=== PATIENT | female | born 1990 | race Asian ===

== ENCOUNTER 2017-02-09 08:28 | Emergency (ER) | payer OTHER ==
[2017-02-09] MEDS ORDERED: SODIUM CHLORIDE 1,000 ML IV STA (08:45)
--- NOTE | 2017-02-09 08:52 | PDOC ---
History of Present Illness - General Chief Complaint: Syncope/Near Syncope Stated Complaint: SYNCOPE Time Seen by Provider: 02/09/17 08:35 History Source: Patient Exam Limitations: No Limitations - History of Present Illness Initial Comments: CHIEF COMPLAINT: 26 y/o afebrile female, , approximately 22 weeks with due date of 06/13/17 and LMP of 09/04/16 BIB EMS after LOC with head trauma. HISTORY OF PRESENT ILLNESS: The patient states she was at [employer] this morning when she felt her vision begin to go black. The next thing she remembers is waking up on the floor. She states she did not eat or drink anything before confucianist. She is denying all complaints currently and states she feels fine. She states other people in the conf[employer]ianist told her she hit her head. She denies MCCARTNEY , bumps on head, changes in hearing, neck pain, f/c, n/v/d, Cp, SOB, dizziness, palpitations, abd pain, back pain, hematuria, dysuria, abnormal vaginal discharge, vaginal bleeding. She is taking vitamins and is a non smokers. She is seeing a doctor in a clinic and will deliver at this hospital with one of our OB/GYNs. She does inform me that 2 days ago she experiences palpitations and MCCARTNEY while sitting down doing nothing. Vital signs on arrival are REVIEW OF SYSTEMS: GENERAL/CONSTITUTIONAL: No fever/chills. No weakness. No weight change. HEAD, EYES, EARS, NOSE AND THROAT: +blackened vision. No ear pain or discharge. No sore throat. CARDIOVASCULAR: No chest pain or shortness of breath. RESPIRATORY: No cough, wheezing, or hemoptysis. GASTROINTESTINAL: No abd pain, nausea, vomiting, diarrhea. GENITOURINARY: No dysuria, frequency, or change in urination. MUSCULOSKELETAL: No joint or muscle swelling or pain. No neck or back pain. SKIN: No rash or easy bruising. NEUROLOGIC: +Loss of consciousness. No headache, vertigo, or loss of sensation. PHYSICAL EXAM: GENERAL: The patient is awake, alert, and fully oriented, in no acute distress. She is well appearing and pleasant. HEAD: Normal with no signs of trauma. No hematomas. No battles signs. NECK: No midline cervical spine TTP or step offs. Full flexion and extension of cervical spine. ENT: Pupils equal, round and reactive to light, extraocular movements intact, sclera anicteric, conjunctiva clear. No raccoon eyes. No hemotympanum b/l. LUNGS: Clear to auscultation bilaterally. Normal excursion. No respiratory distress or use of accessory muscles. CV: RRR, S1/S2, no MRG. Cap refill < 2 sec. ABDOMEN: Soft, non-distended, non-tender even to deep palpation, no hepatomegaly or splenomegaly, no masses. EXTREMITIES: Normal range of motion, no edema. NEUROLOGICAL: Normal speech, normal gait. CN II-XII grossly intact. PSYCH: Normal mood, normal affect. SKIN: Warm, dry, normal turgor, no rashes or lesions noted. Past History - Past Medical History Allergies/Adverse Reactions: Allergies Allergy/AdvReac Type Severity Reaction Status Date / Time No Known Allergies Allergy Verified 02/09/17 09:29 Home Medications: Ambulatory Orders NK [No Known Home Medication] 02/09/17 Heart Score/ECG Review - ECG Intrepretation Comment:: Twelve-lead EKG was performed and reviewed by Dr. Lema. There is normal sinus rhythm with a normal rate. The axis is normal. The intervals are normal. There are no ST or T wave abnormalities. Impression: Normal twelve-lead EKG ED Treatment Course - LABORATORY CBC & Chemistry Diagram: 02/09/17 08:30 02/09/17 08:30 Medical Decision Making - Medical Decision Making A/P: 26 y/o afebrile female, approximately 22 weeks with witnessed syncope with head trauma. Plan is as follows: 1. labs 2. UA/culture 3. EKG 4. Head CT 5. ultrasound 6. IV fluids The patient and her are refusing the Head CT Ultrasound IMPRESSION: Single viable intrauterine gestation at approximately 21 weeks, 3 days. Labs unremarkable EKG normal Pt continues to state that she feels well. Spoke with Dr. Flanagan, OB conductor and engineer and currently upstairs in L&D. We discussed the labs and ultrasound results. She states the patient does not need to be sent upstairs for monitoring. She states the patient can be sent home with her own OB follow up. The patient does see an OB at a clinic and states she will call tomorrow. Gave the patient and her all of the results. Will discharge to home with instructions to rest, drink plenty of fluids and follow up with her DYSLEXIA TEACHER tomorrow. Instructed her to return to the ER immediately with any worsening or concerning symptoms. Instructed her to keep an eye on the patient for the next 24 hours and return her to the ER if she develops any abnormal symptoms including seizures, slurred speech, somnolence, intractable vomiting. The patient verbalizes understanding of all instructions, has no further questions and is awaiting discharge. *DC/Admit/Observation/Transfer Diagnosis at time of Disposition: Syncope and collapse - Discharge Dispostion Disposition: HOME Condition at time of disposition: Good - Referrals Referrals: Tommy Jones MD [Primary Care Provider] - - Patient Instructions Printed Discharge Instructions: DI for Syncope in Adults (Fainting) Additional Instructions: Discharge instructions: -All of your labs were normal -Your EKG was normal -Your ultrasound was normal -Please go home, rest and drink plenty of fluids -Please call your DYSLEXIA TEACHER tomorrow for follow up -Return to the ER immediately with any worsening or concerning symptoms
[2017-02-09 09:06] LABS: BASOPHIL 0.7 % (0-2.0); EOSINOPHIL 3.9 % (0-4.5); MCH 30.1 pg (25.7-33.7); MCHC 33.9 g/dl (32.0-36.0); MEAN CELL VOLUME 88.7 fl (80-96); MEAN PLT VOLUME 9.7 fl (7.5-11.1); NEUTROPHILS 70.9 % (42.8-82.8); PLATELET COUNT 159 K/MM3 (134-434); RDW 13.4 % (11.6-15.6)
[2017-02-09 09:11] VITALS: TEMP 98.2; BMI 26.5
[2017-02-09 09:34] LABS: ALBUMIN 3.3 g/dl (3.4-5.0); ANION GAP 9 (8-16); BILIRUBIN,TOTAL 0.5 mg/dL (0.2-1.0); CALCIUM 8.4 mg/dL (8.5-10.1); CO2 23 mmol/L (21-32); CREATININE 0.4 mg/dL (0.55-1.02); GLUCOSE,RANDOM 86 mg/dL (74-106); SGOT/AST 14 U/L (15-37); SGPT/ALT 21 U/L (12-78); TOT PROT 6.7 g/dl (6.4-8.2)
[2017-02-09 09:36] LABS: ALK PHOS 42 U/L (45-117); TROPONIN I < 0.02 ng/ml (0.00-0.05)
[2017-02-09 10:01] LABS: URINE APPEARANCE CLEAR; URINE BILIRUBIN NEGATIVE (NEGATIVE); URINE BLOOD NEGATIVE (NEGATIVE); URINE COLOR LTYELLOW; URINE GLUCOSE (UA) NEGATIVE (NEGATIVE); URINE KETONE NEGATIVE (NEGATIVE); URINE LEUK ESTERASE NEGATIVE (NEGATIVE); URINE NITRITE NEGATIVE (NEGATIVE); URINE PROTEIN NEGATIVE (NEGATIVE); URINE UROBILINOGEN NEGATIVE E.U./dl (0.2-1.0)
[2017-02-09 11:47] VITALS: BP 116/63; PULSE 78
--- NOTE | 2017-02-09 12:20 | EKG ---
Test Reason : Blood Pressure : / mmHG Vent. Rate : 076 BPM Atrial Rate : 076 BPM P-R Int : 156 ms QRS Dur : 080 ms QT Int : 402 ms P-R-T Axes : 012 013 033 degrees QTc Int : 452 ms NORMAL SINUS RHYTHM CANNOT RULE OUT ANTERIOR INFARCT , AGE UNDETERMINED ABNORMAL ECG NO PREVIOUS ECGS AVAILABLE Confirmed by MARKELL ADDISON MD ([id number]) on 02/09/2017 12:20:04 PM Referred By: Confirmed By:MARKELL ADDISON MD
== END 2017-02-09 11:53 | disposition home or self-care (01) ==
LOC: JER 08:28
PROC: 3E0337Z Introduction of Electrolytic and Water Balance Substance into Peripheral Vein, Percutaneous Approach (ICD-10-PCS; principal; 2017-02-09)
DX: O99.89 Other specified diseases and conditions complicating pregnancy, childbirth and the puerperium (principal); R55 Syncope and collapse; Z3A.21 21 weeks gestation of pregnancy
CPT/HCPCS: 76815-TC; 80053; 81003; 82550; 84484; 87086; 93005; 93010; 96360; 99285-25

== ENCOUNTER 2017-06-13 10:15 | Inpatient (IN) | payer OTHER ==
[2017-06-13] MEDS ORDERED: AMPICILLIN - 2 GM in SODIUM CHLORIDE 100 ML IVPB ONE (11:00)
[2017-06-13 11:45] VITALS: BMI 29.5
[2017-06-13 12:19] LABS: BASOPHIL 0.7 % (0-2.0); EOSINOPHIL 0.7 % (0-4.5); MCH 30.2 pg (25.7-33.7); MCHC 33.6 g/dl (32.0-36.0); MEAN CELL VOLUME 89.9 fl (80-96); MEAN PLT VOLUME 10.5 fl (7.5-11.1); NEUTROPHILS 76.6 % (42.8-82.8); PLATELET COUNT 179 K/MM3 (134-434); RDW 13.2 % (11.6-15.6); WHITE BLOOD COUNT 11.7 K/mm3 (4.0-10.0)
[2017-06-13 12:32] LABS: INR 0.88 (0.82-1.09); PROTHROMBIN TIME (PATIENT) 9.7 SEC (9.98-11.88)
[2017-06-13 12:35] LABS: ACTIVATED PTT 24.3 SECONDS (26.9-34.4)
[2017-06-13 12:37] LABS: ANION GAP 11 (8-16); CALCIUM 8.8 mg/dL (8.5-10.1); CO2 23 mmol/L (21-32); CREATININE 0.4 mg/dL (0.55-1.02); GLUCOSE,RANDOM 81 mg/dL (74-106)
[2017-06-13 12:53] LABS: HIV 1 & 2 AB NEGATIVE; HIV 1 AGp24 NEGATIVE
[2017-06-13] MEDS ORDERED: DEXTROSE 5%-LACTATED RINGERS 1,000 ML IV SCH ×2 (14:45→15:45)
[2017-06-13] MEDS: AMPICILLIN - 100 ML IVPB SCH ×2 (15:20→18:53)
[2017-06-13] MEDS ORDERED: PROMETHAZINE HCL 25 MG/1 ML VIAL IVPUSH ONE (15:42)
[2017-06-13] MEDS ORDERED: BUTORPHANOL TARTRATE 1 MG/ML VIAL IVPB ONE (15:42)
--- NOTE | 2017-06-13 15:51 | HP ---
Past Medical History - Admission Chief Complaint: Labor pain History of Present Illness: 27 yo , @ 40 weeks gestation, EDC 06/13 presents c/o labor pain. She denies vaginal bleeding nor rupture of membrane. History Source: Patient Limitations to Obtaining History: No Limitations - Past Medical History ...: 1 ...Para: 0 ...Term: 0 ...: 0 ...Spon : 0 ...Induced : 0 ...Multiple Gestation: 0 ...LMP: 08/28/16 ... Weeks Gestation by Dates: 41.2 ...EDC by Dates: 06/04/17 ...EDC by Sono: 06/13/17 - Past Surgical History Past Surgical History: Yes: None Hx Myomectomy: No Hx Transabdominal Cerclage: No - Smoking History Smoking history: Never smoked Have you smoked in the past 12 months: No - Alcohol/Substance Use Hx Alcohol Use: No History of Substance Use: reports: None - Social History Usual Living Arrangement: Yes: With Spouse History of Recent Travel: No Home Medications - Allergies Allergies/Adverse Reactions: Allergies Allergy/AdvReac Type Severity Reaction Status Date / Time No Known Allergies Allergy Verified 06/13/17 11:03 - Home Medications Home Medications: Ambulatory Orders Vit No.130/Iron/FA [ Vitamins] 1 each PO DAILY 06/13/17 Family Disease History - Family Disease History Family History: Unremarkable Review of Systems - Review of Systems Constitutional: reports: No Symptoms Eyes: reports: No Symptoms HENT: reports: No Symptoms Neck: reports: No Symptoms Cardiovascular: reports: No Symptoms Respiratory: reports: No Symptoms Gastrointestinal: reports: No Symptoms Genitourinary: reports: Pain Breasts: reports: No Symptoms Reported Musculoskeletal: reports: No Symptoms Integumentary: reports: No Symptoms Neurological: reports: No Symptoms Endocrine: reports: No Symptoms Hematology/Lymphatic: reports: No Symptoms Psychiatric: reports: No Symptoms Pain Intensity: 5 Physical Exam - Maternity Vital Signs: Vital Signs Temperature 97.9 F 06/13/17 15:00 Pulse Rate 80 06/13/17 15:00 Respiratory Rate 20 06/13/17 15:00 Blood Pressure 130/68 06/13/17 15:00 O2 Sat by Pulse Oximetry (%) Constitutional: Yes: Well Nourished Eyes: Yes: Conjunctiva Clear HENT: Yes: Atraumatic Neck: Yes: Supple Cardiovascular: Yes: Regular Rate and Rhythm Lungs: Clear to auscultation Breast(s): Yes: WNL - Abdominal Exam/OB Number of Fetuses: Single Presentation: Vertex - Vaginal Exam/OB Vaginal Bleediing: No Speculum Exam: No Dilatation (cm): 3 Effacement (%): 80 Station: -3 - Physical Exam Musculoskeletal: Yes: WNL Extremities: Yes: WNL Integumentary: Yes: WNL ...Motor Strength: WNL Psychiatric: Yes: Alert, Oriented - Labs Lab Results: CBC, BMP 06/13/17 11:45 06/13/17 11:45 Problem List - Problems (1) Pain during labor Code(s): O99.89 - OTH DISEASES AND CONDITIONS COMPL PREG/CHLDBRTH R52 - PAIN, UNSPECIFIED Assessment/Plan Active labor Admit to L&D Analgesia as needed Anticipate normal vaginal delivery
--- NOTE | 2017-06-13 15:56 | PN ---
Progress Note (short form) - Note Progress Note: Patient seen and evaluated, she c/o moderate discomfort. She declines analgesia now. FHR : reassuring [place] : + regular contractions VE : 6/-2 AROM clear A/P Active labor Analgesia as needed Anticipate Problem List - Problems (1) Pain during labor Code(s): O99.89 - OTH DISEASES AND CONDITIONS COMPL PREG/CHLDBRTH R52 - PAIN, UNSPECIFIED
[2017-06-13] MEDS ORDERED: IBUPROFEN 600 MG TABLET (FP) PO PRN (21:07)
[2017-06-13] MEDS ORDERED: BENZOCAINE 20% 57 GM BOTTLE TP PRN (21:07)
[2017-06-13] MEDS ORDERED: WITCH HAZEL 50% (TUCKS) 40 PAD/JAR PAD TP PRN (21:07)
[2017-06-13] MEDS ORDERED: METHYLERGONOVINE MALEATE 0.2 MG/1 ML AMP IM PRN (21:07)
[2017-06-13] MEDS ORDERED: ACETAMINOPHEN 325 MG TABLET (FP) PO PRN (21:07)
[2017-06-13] MEDS ORDERED: BISACODYL 10 MG SUPP.RECT RC PRN (21:07)
[2017-06-13] MEDS ORDERED: BENZOCAINE 28 GM HEMORRHOIDAL OINTMENT TP PRN (21:07)
--- NOTE | 2017-06-13 21:10 | PN ---
Delivery - Delivery Vaginal Delivery: Spontaneous Type of Anesthesia: Local Episiotomy/Laceration: Midline EBL (cc): 300 Delivery, Single - Feeding Plan Initial Plan: Exclusive throughout hospitalization Remarks - Remarks Remarks: Normal spontaneous vaginal delivery of a live infant boy over midline episiotomy. Nose / Oropharynx suctioned @ perineum. Cord clamped and cut. Placenta expelled spontaneously intact. Midline episiotomy repaired with 2.0 Chromic.
[2017-06-13] MEDS ORDERED: D5W-LR W/ 20 UNITS OXYTOCIN 1,000 ML IV SCH (21:15)
[2017-06-14] MEDS: AMPICILLIN - 100 ML IVPB SCH ×2 (00:03→04:32)
[2017-06-14 07:41] LABS: BASOPHIL 0.5 % (0-2.0); EOSINOPHIL 0.7 % (0-4.5); MCH 30.3 pg (25.7-33.7); MCHC 33.4 g/dl (32.0-36.0); MEAN CELL VOLUME 90.7 fl (80-96); MEAN PLT VOLUME 10.6 fl (7.5-11.1); NEUTROPHILS 78.3 % (42.8-82.8); PLATELET COUNT 146 K/MM3 (134-434); RDW 13.3 % (11.6-15.6); WHITE BLOOD COUNT 16.9 K/mm3 (4.0-10.0)
[2017-06-14] MEDS: FERROUS SO4 325 MG TABLET (FP) PO SCH ×3 (08:19→17:07)
[2017-06-14] MEDS: PRENATAL VITAMINS W/ FOLIC ACID TABLET (FP) PO SCH (10:19)
--- NOTE | 2017-06-14 10:30 | PN ---
Post Progress Note - Subjective Subjective: 27 yo Para 1 status post vaginal delivery, seen and evaluated. Doing well Post Day: 1 Type of Delivery: Vital Signs: Vital Signs Temperature 98 F 06/14/17 10:00 Pulse Rate 86 06/14/17 10:00 Respiratory Rate 20 06/14/17 10:00 Blood Pressure 124/67 06/14/17 10:00 O2 Sat by Pulse Oximetry (%) 100 06/13/17 20:45 Breast Exam: Yes: Soft Uterus: Yes: Fundus Firm Abdomen/GI: Yes: Abdomen soft Lochia: Yes: Rubra Lochia, amount: Small Extremities: Yes: Calves non-tender Perineum: Yes: Episiotomy (Healing) Activity: Ambulating - Labs Labs: CBC WBC 16.9 K/mm3 (4.0-10.0) H D 06/14/17 06:00 RBC 4.05 M/mm3 (3.60-5.2) 06/14/17 06:00 Hgb 12.3 GM/dL (10.7-15.3) D 06/14/17 06:00 Hct 36.8 % (32.4-45.2) 06/14/17 06:00 MCV 90.7 fl (80-96) 06/14/17 06:00 MCH 30.3 pg (25.7-33.7) 06/14/17 06:00 MCHC 33.4 g/dl (32.0-36.0) 06/14/17 06:00 RDW 13.3 % (11.6-15.6) 06/14/17 06:00 Plt Count 146 K/MM3 (134-434) 06/14/17 06:00 MPV 10.6 fl (7.5-11.1) 06/14/17 06:00 Neutrophils % 78.3 % (42.8-82.8) 06/14/17 06:00 Lymphocytes % 15.4 % (8-40) 06/14/17 06:00 Monocytes % 5.1 % (3.8-10.2) 06/14/17 06:00 Eosinophils % 0.7 % (0-4.5) 06/14/17 06:00 Basophils % 0.5 % (0-2.0) 08/26/17 06:00 Problem List - Problems (1) Pain during labor Code(s): O99.89 - OTH DISEASES AND CONDITIONS COMPL PREG/CHLDBRTH R52 - PAIN, UNSPECIFIED Assessment/Plan Status post vaginal delivery Stable Continue routine care
--- NOTE | 2017-06-14 10:32 | DS ---
Physical Exam-AUTOMATIC MOUNTER Vital Signs: Vital Signs Temperature 98 F 06/14/17 10:00 Pulse Rate 86 06/14/17 10:00 Respiratory Rate 20 06/14/17 10:00 Blood Pressure 124/67 06/14/17 10:00 O2 Sat by Pulse Oximetry (%) 100 06/13/17 20:45 Constitutional: Yes: Well Nourished Eyes: Yes: Conjunctiva Clear HENT: Yes: Atraumatic Neck: Yes: Supple, Trachea Midline Cardiovascular: Yes: Regular Rate and Rhythm Respiratory: Yes: Regular, CTA Bilaterally Gastrointestinal: Yes: Normal Bowel Sounds ...Rectal Exam: Yes: WNL Pelvis: Yes: WNL External Genitalia: Yes: Normal Vaginal Exam: Yes: Normal Cervix: Yes: Normal Uterus: Yes: Firm ....Post : Yes: Uterus firm, Moderate lochia serosa Breast(s): Yes: WNL Musculoskeletal: Yes: WNL Extremities: Yes: WNL Neurological: Yes: Alert, Oriented ...Motor Strength: WNL Psychiatric: Yes: Alert, Oriented Labs: CBC, BMP 06/14/17 06:00 06/13/17 11:45 Delivery - Delivery Vaginal Delivery: Spontaneous Type of Anesthesia: Local Episiotomy/Laceration: Midline EBL (cc): 300 Delivery, Single - Stages of Labor Date 1st Stage Initiatied: 06/13/17 Time 1st Stage Initiated: 16:00 Date 2nd Stage Initiated: 06/13/17 Time 2nd Stage Initiated: 19:50 Date of Delivery: 06/13/17 Time of Delivery: 20:21 Time Placenta Delivered: 20:25 - Condition of Hollock 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 Nose / Oropharynx suctioned @ perineum. Cord clamped and cut. Placenta expelled spontaneously intact. Midline episiotomy repaired with 2.0 Chromic. Discharge Summary Reason For Visit: LABOR Current Active Problems Pain during labor (Acute) Procedures: Principal: Normal spontaneous vaginal delivery Hospital Course: Routine care Condition: Good - Instructions Diet, Activity, Other Instructions: Resume your normal everyday activity as tolerated no heavy lifting or exercise until seen by your surgeon. You may walk unlimited marcela of and climb stairs. You may resume driving the car when you feel safe and comfortable behind the wheel. No sexual activity as instructed. Wound care If you have a bandage, leave it on, and keep dry for 48-72 hours. After that time discard the outer bandage. If they are tapes on the skin under the out of bandage leave them in place. They will peel off in the next 7 to 10 days. Do Not Peel them off. You may shower the day after surgery. If there are tapes present on the skin, you may shower over them. Diet There are no dietary restrictions. Eat healthy, high-fiber foods. Drink 6 to 8 glasses of liquid each day. This will assist in keeping your bowels are regular. Pain management You may take Tylenol or acetaminophen or Ibuprofen (for example, Motrin, Advil etc.) from my pain prescription medication is ordered should be taken as prescribed for moderate to severe pain. Call MD for any of the following: Severe pain not relieved by medication Fever of 101 or higher Excessive bleeding or drainage on dressing Inability to urinate Disposition: HOME - Home Medications Comprehensive Discharge Medication List: Ambulatory Orders Vit No.130/Iron/FA [ Vitamins] 1 each PO DAILY 06/13/17
[2017-06-14] MEDS ORDERED: SENNOSIDES/DOCUSATE COMBO (SENNA PLUS) TABLET (UD) PO PRN (22:00)
[2017-06-15 09:05] VITALS: BP 126/66; PULSE 66; TEMP 97
[2017-06-15] MEDS: PRENATAL VITAMINS W/ FOLIC ACID TABLET (FP) PO SCH (09:14)
[2017-06-15] MEDS: FERROUS SO4 325 MG TABLET (FP) PO SCH ×2 (09:15→12:24)
== END 2017-06-15 15:10 | disposition home or self-care (01) | DRG 560 ==
LOC: JDEL 10:15 → JLDR 10:55 → J3W 22:45
PROVIDERS: ADMIT Obstetrics & Gynecology; ATTEND Obstetrics & Gynecology
PROC: 10E0XZZ Delivery of Products of Conception, External Approach (ICD-10-PCS; principal; 2017-06-13)
PROC: 0W8NXZZ Division of Female Perineum, External Approach (ICD-10-PCS; 2017-06-13)
DX: O80 Encounter for full-term uncomplicated delivery (principal); Z3A.40 40 weeks gestation of pregnancy; Z37.0 Single live birth
CPT/HCPCS: 36415; 59409; 80048; 85025; 85610; 85730; 86593; 86850; 86900; 86901; 87389

== ENCOUNTER 2018-10-22 16:59 | Observation (INO) | payer OTHER ==
[2018-10-22 17:09] VITALS: BMI 23.6
--- NOTE | 2018-10-22 18:01 | PDOC ---
History of Present Illness - General Chief Complaint: Headache Stated Complaint: 9 WEEKS WITH Headache Time Seen by Provider: 10/22/18 17:41 History Source: Patient Exam Limitations: No Limitations - History of Present Illness Initial Comments: 10/22/18 17:55 28 year old woman A0 with no past medical history who is 9weeks as confirmed by ultrasound who presents wth 2 days of 9/10 gradual onset frontal throbbing headache moderately relieved w/ Tylenol and elevated BP. Yesterday the patient recorded a bp of 190 systolic at home and went to her OBGYN who prescribed her Nifedipine and worked her up for preeclampsia with unremarkable labwork. She took the medication this AM. She began having a headache today at 1200, took tylenol at 1300 w/ moderate relief. The patient had one episode of NBNB vomiting at 1530. The reports when she arrived she felt some heart racing and shortness of breath. She denies recent fever, illness, abdominal pain, dysuria, vaginal discharge or bleeding, diarrhea, constipation, changes in vision or ringing in the ears. She has no other complaints at bedside. OBGYN: [facility] Past History - Past Medical History Allergies/Adverse Reactions: Allergies Allergy/AdvReac Type Severity Reaction Status Date / Time No Known Allergies Allergy Verified 06/13/17 11:03 Home Medications: Ambulatory Orders Vit No.130/Iron/Folic [ Vitamins] 1 each PO DAILY 06/13/17 Nifedipine [Procardia Xl] 30 mg PO DAILY 10/22/18 Asthma: No Cancer: No Cardiac Disorders: No COPD: No Diabetes: No HTN: No Seizures: No Thyroid Disease: No - Reproductive History (#): 1 - Immunization History Immunization Up to Date: Yes - Suicide/Smoking/Psychosocial Hx Smoking History: Never smoked Have you smoked in the past 12 months: No Information on smoking cessation initiated: No Hx Alcohol Use: No Drug/Substance Use Hx: No Substance Use Type: None Hx Substance Use Treatment: No Review of Systems - Review of Systems Able to Perform ROS?: Yes Is the patient limited Slovak proficient: No Constitutional: No: Chills, Diaphoresis, Fever HEENTM: No: Blurred Vision, Tinnitus Respiratory: Yes: Shortness of Breath. No: Cough, Orthopnea Cardiac (ROS): Yes: Palpitations. No: Chest Pain, Lightheadedness, Syncope, Chest Tightness ABD/GI: Yes: Nausea, Vomiting. No: Constipated, Diarrhea : No: Burning, Dysuria, Hematuria Musculoskeletal: No: Back Pain Integumentary: No: Sweating Neurological: Yes: Headache. No: Numbness, Paresthesia, Tingling Endocrine: No: Excessive Sweating *Physical Exam - Vital Signs Last Vital Signs Temp Pulse Resp BP Pulse Ox 97.4 F L 92 H 17 149/91 98 10/22/18 17:05 10/22/18 17:05 10/22/18 17:05 10/22/18 17:05 10/22/18 17:05 - Physical Exam Comments: 10/22/18 18:16 GENERAL: Awake, alert, and fully oriented, in no acute distress HEAD: No signs of trauma, normocephalic, atraumatic EYES: EOMI, sclera anicteric, conjunctiva clear ENT: oropharynx clear without exudates. Moist mucosa NECK: Normal ROM, supple LUNGS: No distress, speaks full sentences, clear to auscultation bilaterally HEART: Regular rate and rhythm, normal S1 and S2, no murmurs, rubs or gallops, peripheral pulses normal and equal bilaterally. ABDOMEN: Soft, nontender, normoactive bowel sounds. No guarding, no rebound. No masses EXTREMITIES : Normal inspection, Normal range of motion, no edema. No clubbing or cyanosis. NEUROLOGICAL: Cranial nerves II through XII grossly intact. Normal speech, no focal sensorimotor deficits SKIN: Warm, Dry, normal turgor, no rashes or lesions noted Moderate Sedation - Procedure Monitoring Vital Signs: Procedure Monitoring Vital Signs Temperature 97.4 F L 10/22/18 17:05 Pulse Rate 92 H 10/22/18 17:05 Respiratory Rate 17 10/22/18 17:05 Blood Pressure 149/91 10/22/18 17:05 O2 Sat by Pulse Oximetry (%) 98 10/22/18 17:05 ED Treatment Course - LABORATORY CBC & Chemistry Diagram: 10/22/18 18:38 10/22/18 18:38 Medical Decision Making - Medical Decision Making 10/22/18 18:11 28 year old woman A0 with no past medical history who is 9weeks as confirmed by ultrasound who presents wth 2 days of 06/29 gradual onset frontal throbbing headache moderately relieved w/ Tylenol and elevated BP. Yesterday the patient recorded a bp of 190 systolic at home and went to her OBGYN who prescribed her Nifedipine and worked her up for preeclampsia with unremarkable labwork. She took the medication this AM. She began having a headache today at 1200, took tylenol at 1300 w/ moderate relief. The patient had one episode of NBNB vomiting at 1530. The reports when she arrived she felt some heart racing and shortness of breath. She denies recent fever, illness, abdominal pain, dysuria, vaginal discharge or bleeding, diarrhea, constipation, changes in vision or ringing in the ears. She has no other complaints at bedside. ED Course: Patient with symptoms concerning for molar vs preeclampsia vs migraine vs Also considered subarachnoid hemorrhage, however less likely Possible PE as pt with some tachycardia and shortness of breath cbc, cmp, bhcg, ua, ucx, tvus 10/22/18 20:29 cbc, cmp beta [place] 20934 K 2.7 replete with 40 meq and 20 meq IV EKG:normal sinus rhythm HR 79, no interval abnormalities, QTc 490, narrow QRS, ST and T wave segments and morphology normal. ua - 2+ protein Call sent out to OBGYN Dr. Herzog Patient reassessed repeat BP 169/90 and 175/89 TVUS with single IUP 9 weeks 1 day and small subchorionic bleed. 10/22/18 20:38 Attending spoke with Isrrael treviño for [facility], who will see patient tomorrow AM. Nifedipine 30mg given Plan for admission for HTN in , hypokalemia, proteinuria. 10/22/18 21:39 Patient admitted to medicine for further work up and evaluation *DC/Admit/Observation/Transfer Diagnosis at time of Disposition: Hypokalemia, HTN (hypertension), Proteinuria, - Referrals Referrals: Tommy Jones MD [Primary Care Provider] - - Patient Instructions - Post Discharge Activity
--- NOTE | 2018-10-22 18:04 | PDOC ---
Attending Attestation - [facility] HPI: 10/22/18 18:23 The patient is a 28 year old female, A0, 9 weeks gestation, with no significant past medical history who presents to the emergency department with 2 days of frontal headache which she reports as 9/10 in severity with radiation to the top of her head. 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 She was reportedly given procardia 30 which she took today without relief of her headache. She reports one episode of emesis today and just prior to arrival developed palpitations and mild SOB. She denies abdominal pain, cramping or vaginal bleeding or discharge. The patient denies chest pain, and dizziness. The patient denies fever, chills, nausea, vomit, diarrhea and constipation. The patient denies dysuria, frequency , urgency and hematuria. Allergies: NKDA Printing Machine Mechanic: Dr. Herzog Documentation prepared by Jenise Dexter, acting as emergency medical services coordinator for Janelle Xiong DO - Physicial Exam PE: 10/22/18 18:26 Constitutional: Awake, alert, oriented. No acute distress. Head: Normocephalic. Atraumatic Eyes: PERRL. EOMI. Conjunctivae are not pale. ENT: Mucous membranes are moist and intact. Posterior pharynx without exudates or erythema. Uvula midline. Neck: Supple. Full ROM. No lymphadenopathy. Cardiovascular: (+) slight tachycardia. Regular rhythm. S1, S2 regular. Distal pulses are 2+ and symmetric. Pulmonary/Chest: No evidence of respiratory distress. Clear to auscultation bilaterally No wheezing, rales or rhonchi. Abdominal: Soft and non-distended. There is no tenderness. No rebound, guarding or rigidity. No organomegaly. No palpable masses. Good bowel sounds. Back: No CVA tenderness. Musculoskeletal: No edema. No cyanosis. No clubbing. Full range of motion in all extremities. Nocalf tenderness. Radial/pedal pulses are intact and 2+ bilaterally Skin: Skin is warm and dry. No petechiae. No purpura. Neurological: Alert and oriented to person, place, and time. Cranial nerves II -XII are grossly intact. Normal speech. Strength is grossly symmetric. No sensory deficits. Psychiatric: Good eye contact. Normal interaction, affect and behavior. - Medical Decision Making 10/22/18 19:57 Dr. Herzog was paged via phone answering service at this time. <Jenise Dexter - Last Filed: 10/22/18 19:57> - Resident Resident Name: Cindi Ahujaie - ED Attending Attestation I have performed the following: I have examined & evaluated the patient, The case was reviewed & discussed with the resident, I agree w/resident's findings & plan, Exceptions are as noted - Medical Decision Making 10/22/18 18:04 I, Dr. Janelle Xiong, DO, attest that this document has been prepared under my direction and personally reviewed by me in its entirety. I further attest, that it accurately reflects all work, treatment, procedures and medical decision -making performed by me. 10/22/18 18:20 a/p: 28yo female at 9 weeks gestation with elevated BP and mason -saw Dr. Herzog yesterday and started on Nifedipine 30mg -took first dose today -mason today - improved mildly with tylenol -no neuro complaints other than mason -1 episode of nbnb vomiting -will send labs, tvus, will give tylenol for mason -will monitor and reassess -will discuss with Dr. Herzog -no vaginal complaints. 10/22/18 19:58 elevated bp headache 2+ protein in urine call placed to Dr. Herzog IUP at 9 weeks small subchorionic bleed 10/22/18 20:[address] Benson who will see the patient in consult requests med admission hypokalemia, proteinuria, hypertensive urgency, mason 10/22/18 20:49 resident discussed the case with Dr. Jones who requests consult [facility] 10/22/18 21:37 resident discussed the case with Dr. Sethi from [facility] who accepts pt to service <Janelle Xiong - Last Filed: 10/22/18 21:37> Heart Score/ECG Review - ECG Intrepretation Comment:: 10/22/18 18:53 sinus at 79, qtc 490, nl axis, no acute st/t wave findings <Janelle Xiong - Last Filed: 10/22/18 21:37>
[2018-10-22] MEDS ORDERED: SODIUM CHLORIDE 1,000 ML IV SCH (18:15)
[2018-10-22 18:57] LABS: HEMATOCRIT 44.4 % (32.4-45.2); HEMOGLOBIN 15.5 GM/dL (10.7-15.3); MCH 29.5 pg (25.7-33.7); MCHC 34.9 g/dl (32.0-36.0); MEAN CELL VOLUME 84.5 fl (80-96); PLATELET COUNT 229 K/MM3 (134-434); RBC 5.25 M/mm3 (3.60-5.2); RDW 12.9 % (11.6-15.6)
[2018-10-22 19:14] LABS: URINE APPEARANCE CLOUDY; URINE BILIRUBIN NEGATIVE (<2.0 mg/dL); URINE COLOR LTYELLOW; URINE GLUCOSE (UA) NEGATIVE (NEGATIVE); URINE KETONE TRACE (NEGATIVE); URINE LEUK ESTERASE NEGATIVE (NEGATIVE); URINE NITRITE NEGATIVE (NEGATIVE); URINE PROTEIN 2+ (NEGATIVE); URINE UROBILINOGEN NEGATIVE mg/dL (0.2-1.0)
[2018-10-22 19:20] LABS: ALBUMIN 4.5 g/dl (3.4-5.0); ALK PHOS 40 U/L (45-117); ANION GAP 11 MMOL/L (8-16); BLOOD UREA NITROGEN 7 mg/dL (7-18); CALCIUM 9.3 mg/dL (8.5-10.1); CHLORIDE 99 mmol/L (98-107); CO2 23 mmol/L (21-32); CREATININE 0.7 mg/dL (0.55-1.3); GLUCOSE,RANDOM 126 mg/dL (74-106); SGOT/AST 15 U/L (15-37); SGPT/ALT 25 U/L (13-61); SODIUM 133 mmol/L (136-145); TOT PROT 8.6 g/dl (6.4-8.2)
[2018-10-22 19:21] LABS: POTASSIUM 2.7 mmol/L (3.5-5.1)
[2018-10-22] MEDS ORDERED: POTASSIUM CHLORIDE TABS 20 MEQ TABLET.ER (FP) PO ONE ×2 (19:22→19:33)
[2018-10-22] MEDS ORDERED: POTASSIUM CHLORIDE 20 MEQ PREMIX IVPB 100 ML IVPB ONE (19:22)
[2018-10-22 19:32] LABS: URINE HYALINE CAST 3 /lpf
[2018-10-22] MEDS ORDERED: KCL 10 MEQ IVPB 20 MEQ/200 ML INFUS.BAG IVPB ONE (19:34)
[2018-10-22] MEDS ORDERED: NIFEdipine 10 MG CAPSULE (FP) PO ONE (20:36)
[2018-10-22] MEDS ORDERED: NIFEdipine E.R. 30 MG TABLET (FP) ONE (21:02)
--- NOTE | 2018-10-22 21:41 | PN ---
Teaching Attending Note Name of Resident: Esme Denis ATTENDING PHYSICIAN STATEMENT I saw and evaluated the patient. I reviewed the resident's note and discussed the case with the resident. I agree with the resident's findings and plan as documented. SUBJECTIVE: Patient is a 28 year old woman A0 wiho is 9 weeks presenting wth 2 days of 9/10 gradual onset frontal throbbing headache and elevated BP. Yesterday the patient recorded a BP of 190 systolic at home and went to her OB/ PHOTO CHECKER who prescribed her Nifedipine and worked her up for ?preeclampsia with unremarkable labwork. She took the medication this AM. She began having a headache today at 1200, took tylenol at 1300 with moderate relief. The patient had one episode of NBNB vomiting at 15:30. Also reports that when she arrived she felt some heart racing and shortness of breath. She denies recent fever, illness, abdominal pain, dysuria, vaginal discharge or bleeding, diarrhea, changes in vision or ringing in the ears. OBJECTIVE: Alert Vital Signs Period Temp Pulse Resp BP Sys/Burroughs Pulse Ox Last 24 Hr 97.4 F 92 17 149/91 98 HEENT: No Jaundice, eye redness or discharge, PERRLA, EOMI. Normocephalic, atraumatic. Fundi not seen. External ears are normal and hearing is grossly intact. No nasal discharge. Neck: Supple, nontender. No palpable adenopathy or thyromegaly. No JVD Chest: Good effort. Clear to auscultation and percussion. Heart: Regular. No S3, rub or murmur Abdomen: Not distended, soft, nontender and no HSM. No rebound or guarding. Normoactive bowel sounds. Ext: Peripheral pulses intact. No leg edema. Skin: Warm and dry. No petechiae, rash or ecchymosis. Neuro: Alert. Oriented x3. CN 2-12 grossly intact. Sensation grossly intact in all four extremities and DTR are symmetric. Home Medications Medication Instructions Recorded Vit No.130/Iron/Folic 1 each PO DAILY 06/13/17 [ Vitamins] Nifedipine [Procardia Xl] 30 mg PO DAILY 10/22/18 Abnormal Lab Results 10/22/18 10/22/18 10/22/18 18:38 18:38 18:47 WBC 13.0 H RBC 5.25 H Hgb 15.5 H Sodium 133 L Potassium 2.7 L* Random Glucose 126 H Alkaline Phosphatase 40 L Total Protein 8.6 H Ur Specific [place] 1.009 L Urine Protein 2+ H Urine Ketones Trace H ASSESSMENT AND PLAN: 1. Uncontrolled hypertension in - BP has improved with the initial dose of Procardia XL give in the ER. Because Procardia XL may often cause headache, will treat her with Labetalol 50 mg po BID with a target BP of about 140/90. Etiology of hypokalemia is unclear. Check Mg+ level and continue IV and PO KCL. Monitor on telemetry. Check HbA1c and may need GTT. Leukocytosis is unexplained - may be a stress reaction - no other evidence of infection. Will repeat CBC, monitor platelets, LFTs and urine protein. EKG is NSR with prolonged QTc. FAMILY LIFE COUNSELOR consult. 2. DVT prophylaxis - Heparin 5000u sq tid. 3. Advance directives - Full code
--- NOTE | 2018-10-23 04:02 | HP ---
CHIEF COMPLAINT: Headache + SOB PCP: Dr. Jones HISTORY OF PRESENT ILLNESS: 28 y/o F with no significant PMHx presents with 2 days of headache. Yesterday, Patient woke up with 9/10 Throbbing frontal headache that radiated to her Neck. This is the first time she has experienced this. She has tried Tylenol with no relief. No hx of headache or recent trauma. No preceding Aura. Today, the patient measured her BP to be 180/100 for which she visited her OBGYN. She was started on Procardia this morning and Her workup for preeclampsia was negative at this time. Around noon, her headache returned and was accompanied by one episode of NBNB Vomiting, about 3 cups worth, SOB and palpitations prompting her to visit the ED. Her prior was normal term without complications, and her vaginal delivery was without complications. Denies any hx of STIs/STDs. Denies any associated fevers, chills, chest pain, diarrhea, constipation. 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 Ambulation: Denies Residence: Apartment with Family History: Allergies No Known Allergies Allergy (Verified 06/13/17 11:03) HOME MEDICATIONS: Home Medications Medication Instructions Recorded Vit No.130/Iron/Folic 1 each PO DAILY 06/13/17 [ Vitamins] Nifedipine [Procardia Xl] 30 mg PO DAILY 10/22/18 REVIEW OF SYSTEMS As per HPI PHYSICAL EXAMINATION Vital Signs - 24 hr 10/22/18 17:05 Temperature 97.4 F L Pulse Rate 92 H Respiratory 17 Rate Blood Pressure 149/91 O2 Sat by Pulse 98 Oximetry (%) GENERAL: A&Ox3, NAD HEAD: NCAT EYES: PERRL, EOMI EARS, NOSE, THROAT: Oropharynx clear without exudates. Moist mucous membranes. NECK: No JVD LUNGS: CTA b/l, No wheezes, no crackles HEART: Regular rate and rhythm, normal S1 and S2 without murmur ABDOMEN: Soft, nontender, not distended, + bowel sounds, no guarding EXTREMITIES: 2+ pulses, No peripheral edema. NEUROLOGICAL: Cranial nerves II-XII intact. Normal speech. SKIN: Warm, dry Laboratory Results - last 24 hr 10/22/18 10/22/1819 18:38 18:38 18:38 WBC 13.0 H RBC 5.25 H Hgb 15.5 H Hct 44.4 D MCV 84.5 MCH 29.5 MCHC 34.9 RDW 12.9 Plt Count 229 D MPV 10.0 Sodium 133 L Potassium 2.7 L* Chloride 99 Carbon Dioxide 23 Anion Gap 11 BUN 7 Creatinine 0.7 Creat Clearance w eGFR > 60 Random Glucose 126 H Calcium 9.3 Magnesium Total Bilirubin 1.0 AST 15 ALT 25 Alkaline Phosphatase 40 L Total Protein 8.6 H Albumin 4.5 Beta HCG, Quant 22432.0 Urine Color Urine Appearance Urine pH Ur Specific [place] Urine Protein Urine Glucose (UA) Urine Ketones Urine Blood Urine Nitrite Urine Bilirubin Urine Urobilinogen Ur Leukocyte Esterase Urine WBC (Auto) Urine RBC (Auto) Hyaline Casts 10/22/18 10/22/18 18:47 19:31 WBC RBC Hgb Hct MCV MCH MCHC RDW Plt Count MPV Sodium Potassium Chloride Carbon Dioxide Anion Gap BUN Creatinine Creat Clearance w eGFR Random Glucose Calcium Magnesium 2.0 Total Bilirubin AST ALT Alkaline Phosphatase Total Protein Albumin Beta HCG, Quant Urine Color Ltyellow Urine Appearance Cloudy Urine pH 8.0 Ur Specific [place] 1.009 L Urine Protein 2+ H Urine Glucose (UA) Negative Urine Ketones Trace H Urine Blood Negative Urine Nitrite Negative Urine Bilirubin Negative Urine Urobilinogen Negative Ur Leukocyte Esterase Negative Urine WBC (Auto) None Urine RBC (Auto) None Hyaline Casts 3 ASSESSMENT/PLAN: 28 y/o F with no significant PMHx presents with 2 days of headache and found to have Hypokalemia #Hypokalemia -Unclear Etiology -Given 40mEq PO and 20 mEq IV in ED -Will recheck BMP and Mag, replete as appropriate -A1c #Elevated BP -Unclear etiology; Possibly due to or due to recent Stress (New Job, , family) -Will Stop procardia for now given AE of Reflex tachycardia and Headaches -Start Labetalol 50mg BID #FEN -PO Fluids -Lytes WNL -Regular Diet #PPx -DVT: SCDs Visit type - Emergency Visit Emergency Visit: Yes ED Registration Date: 10/22/18 Care time: The patient presented to the Emergency Department on the above date and was hospitalized for further evaluation of their emergent condition. - New Patient This patient is new to me today: Yes Date on this admission: 10/25/18 - Critical Care Critical Care patient: No
[2018-10-23 06:37] LABS: BASO % 0.8 % (0-2.0); EOS % 1.8 % (0-4.5); HEMATOCRIT 41.9 % (32.4-45.2); HEMOGLOBIN 14.1 GM/dL (10.7-15.3); LYMPH % 32.8 % (8-40); MCH 28.5 pg (25.7-33.7); MCHC 33.5 g/dl (32.0-36.0); MEAN CELL VOLUME 85.1 fl (80-96); MEAN PLT VOLUME 10.2 fl (7.5-11.1); MONO % 5.7 % (3.8-10.2); NEUT % 58.9 % (42.8-82.8); PLATELET COUNT 189 K/MM3 (134-434); RBC 4.93 M/mm3 (3.60-5.2); RDW 12.9 % (11.6-15.6)
[2018-10-23 07:02] LABS: ALBUMIN 3.7 g/dl (3.4-5.0); ALK PHOS 32 U/L (45-117); ANION GAP 8 MMOL/L (8-16); BILIRUBIN,TOTAL 1.5 mg/dL (0.2-1); BLOOD UREA NITROGEN 5 mg/dL (7-18); CALCIUM 8.5 mg/dL (8.5-10.1); CHLORIDE 104 mmol/L (98-107); CO2 24 mmol/L (21-32); CREATININE 0.5 mg/dL (0.55-1.3); GLUCOSE,RANDOM 83 mg/dL (74-106); MAGNESIUM 2.1 mg/dL (1.8-2.4); PHOSPHOROUS 3.2 mg/dL (2.5-4.9); POTASSIUM 3.4 mmol/L (3.5-5.1); SGOT/AST 13 U/L (15-37); SGPT/ALT 20 U/L (13-61); SODIUM 136 mmol/L (136-145); TOT PROT 7.1 g/dl (6.4-8.2)
[2018-10-23] MEDS ORDERED: POTASSIUM CHLORIDE TABS 20 MEQ TABLET.ER (FP) PO ONE ×2 (08:48→09:15)
--- NOTE | 2018-10-23 09:16 | EKG ---
Test Reason : Blood Pressure : / mmHG Vent. Rate : 079 BPM Atrial Rate : 079 BPM P-R Int : 170 ms QRS Dur : 086 ms QT Int : 428 ms P-R-T Axes : 059 003 047 degrees QTc Int : 490 ms NORMAL SINUS RHYTHM POSSIBLE LEFT ATRIAL ENLARGEMENT PROLONGED QT ABNORMAL ECG WHEN COMPARED WITH ECG OF 09-FEB-2017 08:58, NO SIGNIFICANT CHANGE WAS FOUND Confirmed by TANIYA GONZALES, BLACK ([id number]) on 10/23/2018 9:16:10 AM Referred By: Confirmed By:BLACK MONAHAN MD
[2018-10-23] MEDS ORDERED: LABETALOL HCL 100 MG TABLET (FP) PO SCH ×2 (10:00→22:00)
--- NOTE | 2018-10-23 11:29 | CONSULT ---
Consult - text type - Consultation Consultation Note: Renal Consult for gestational hypertension vs. preesclampsia This is a 28 year old niuean woman with no significant PMhx who presented with complaints of MCCARTNEY with N/V and found to be hypertensive. Pt was noted to be hypertensive at her OB office and started on Nifedpine ER. Denies any hx of pre- existing hypertension. No complications with prior . MCCARTNEY is now improved , No weakness or numbness. No further N/V as an inpatient. PMhx: as above Allergies: NKDA Family Hx: Father with hypertension Social Hx: No T/A/D ROS: as per HPI Home Medications Medication Instructions Recorded Vit No.130/Iron/Folic 1 each PO DAILY 06/13/17 [ Vitamins] Nifedipine [Procardia Xl] 30 mg PO DAILY 10/22/18 Vital Signs Temperature 98.2 F 10/23/18 08:43 Pulse Rate 76 10/23/18 08:43 Respiratory Rate 18 10/23/18 08:43 Blood Pressure 147/88 10/23/18 08:43 O2 Sat by Pulse Oximetry (%) 98 10/22/18 17:05 Intake & Output 10/20/18 10/21/18 10/22/18 10/23/18 23:59 23:59 23:59 23:59 Weight 56.699 kg NAD awake and alert neck supple, no JVD RRR, no M/R CTA, no rales NO LE edema CBC, BMP 10/23/18 06:00 10/23/18 06:00 Current Medications Labetalol HCl (Normodyne -) 50 mg PO BID CHAVEZ Last Admin: 10/23/18 09:05 Dose: 50 mg 28 year old niuean woman with no significant PMhx who presented with complaints of MCCARTNEY with N/V and found to be hypertensive. Pt was noted to be hypertensive at her OB office and started on Nifedpine ER. #Hypertensive urgency with +/- Preeclamspia #Headache #Hypokalemia in setting of N/V #9 week gestation Given that pt is only 9 week gestation it is less likely that pt has pre- clampsia as that usually happens following 20 weeks. However UA did show presence of protein which could be due to preeclampsia like syndrome. 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 Thank you Lukas Jorgensen DO
--- NOTE | 2018-10-23 11:34 | PN ---
Teaching Attending Note Name of Resident: Madelin Bernal ATTENDING PHYSICIAN STATEMENT I saw and evaluated the patient. I reviewed the resident's note and discussed the case with the resident. I agree with the resident's findings and plan as documented with exceptions below. SUBJECTIVE: Patient seen and examined, headache resolved, no other complaints, Feels well. uncomplicated so far. OBJECTIVE: Vital Signs Period Temp Pulse Resp BP Sys/Burroughs Pulse Ox Last 24 Hr 97.4 F-98.2 F 76-92 17-18 147-149/88-91 98 Intake & Output 10/20/18 10/21/18 10/22/18 10/23/18 23:59 23:59 23:59 23:59 Weight 125 lb General: sitting in stretcher, no acute distress Chest: CTAB, no rales or wheezing Abdomen:Soft, NT Extremities: no edema Home Medications Medication Instructions Recorded Vit No.130/Iron/Folic 1 each PO DAILY 06/13/17 [ Vitamins] Nifedipine [Procardia Xl] 30 mg PO DAILY 10/22/18 Active Medications Labetalol HCl (Normodyne -) 50 mg PO BID CHAVEZ Last Admin: 10/23/18 09:05 Dose: 50 mg Laboratory Results - last 24 hr 10/22/18 10/22/18 10/22/18 18:38 18:38 18:38 WBC 13.0 H RBC 5.25 H Hgb 15.5 H Hct 44.4 D MCV 84.5 MCH 29.5 MCHC 34.9 RDW 12.9 Plt Count 229 D MPV 10.0 Absolute Neuts (auto) Neutrophils % Lymphocytes % Monocytes % Eosinophils % Basophils % Nucleated RBC % Sodium 133 L Potassium 2.7 L* Chloride 99 Carbon Dioxide 23 Anion Gap 11 BUN 7 Creatinine 0.7 Creat Clearance w eGFR > 60 Random Glucose 126 H Calcium 9.3 Phosphorus Magnesium Total Bilirubin 1.0 AST 15 ALT 25 Alkaline Phosphatase 40 L Total Protein 8.6 H Albumin 4.5 Beta HCG, Quant 72909.0 Urine Color Urine Appearance Urine pH Ur Specific [employer] Urine Protein Urine Glucose (UA) Urine Ketones Urine Blood Urine Nitrite Urine Bilirubin Urine Urobilinogen Ur Leukocyte Esterase Urine WBC (Auto) Urine RBC (Auto) Hyaline Casts 10/22/18 10/22/18 10/23/18 18:47 19:31 06:00 WBC 9.0 RBC 4.93 Hgb 14.1 Hct 41.9 MCV 85.1 MCH 28.5 MCHC 33.5 RDW 12.9 Plt Count 189 MPV 10.2 Absolute Neuts (auto) 5.3 Neutrophils % 58.9 D Lymphocytes % 32.8 D Monocytes % 5.7 Eosinophils % 1.8 D Basophils % 0.8 Nucleated RBC % 0 Sodium Potassium Chloride Carbon Dioxide Anion Gap BUN Creatinine Creat Clearance w eGFR Random Glucose Calcium Phosphorus Magnesium 2.0 Total Bilirubin AST ALT Alkaline Phosphatase Total Protein Albumin Beta HCG, Quant Urine Color Ltyellow Urine Appearance Cloudy Urine pH 8.0 Ur Specific [employer] 1.009 L Urine Protein 2+ H Urine Glucose (UA) Negative Urine Ketones Trace H Urine Blood Negative Urine Nitrite Negative Urine Bilirubin Negative Urine Urobilinogen Negative Ur Leukocyte Esterase Negative Urine WBC (Auto) None Urine RBC (Auto) None Hyaline Casts 3 10/23/18 06:00 WBC RBC Hgb Hct MCV MCH MCHC RDW Plt Count MPV Absolute Neuts (auto) Neutrophils % Lymphocytes % Monocytes % Eosinophils % Basophils % Nucleated RBC % Sodium 136 Potassium 3.4 L Chloride 104 Carbon Dioxide 24 Anion Gap 8 BUN 5 L Creatinine 0.5 L Creat Clearance w eGFR > 60 Random Glucose 83 Calcium 8.5 Phosphorus 3.2 Magnesium 2.1 Total Bilirubin 1.5 H AST 13 L ALT 20 Alkaline Phosphatase 32 L Total Protein 7.1 Albumin 3.7 Beta HCG, Quant Urine Color Urine Appearance Urine pH Ur Specific [employer] Urine Protein Urine Glucose (UA) Urine Ketones Urine Blood Urine Nitrite Urine Bilirubin Urine Urobilinogen Ur Leukocyte Esterase Urine WBC (Auto) Urine RBC (Auto) Hyaline Casts ASSESSMENT AND PLAN: 28 yof , 9 weeks , admitted with headache and hypertensive urgency -Hypertensive urgency -Headache, likely from above, resolved -9 weeks -Proteinuria Plan: Labetalol. 2D echo. Ob US noted. nephrology input. Ob input if concerns. Dispo d/c later today if BP improved and no new concerns. Plan discussed with patient and at bedside in detail, all questions answered.
[2018-10-23] MEDS ORDERED: LABETALOL HCL 100 MG TABLET (FP) PO ONE (12:01)
[2018-10-23 13:01] LABS: BILIRUBIN,DIRECT 0.3 mg/dL (0.0-0.2)
--- NOTE | 2018-10-23 15:50 | PN ---
Physical Exam: SUBJECTIVE: Patient seen and examined at bed side this morning. Headache resolved. ROS negative. This afternoon, repeat BP after 100mg of Labetolol was 150's-160's mmHg systolic. Continue to monitor in tele. OBJECTIVE: Vital Signs Period Temp Pulse Resp BP Sys/Burroughs Pulse Ox Last 24 Hr 97.4 F-98.2 F 75-92 17-18 147-158/83-91 98 GENERAL: Young female, lying in bed, is awake, alert, and fully oriented, in no acute distress. EYES: No pallor or icterus. NECK: Supple, no JVD. LUNGS: Clear to auscultation bilaterally. No wheeze. HEART: Regular rate and rhythm, S1, S2 with systolic murmur. ABDOMEN: Soft, nontender, no organomegaly. EXTREMITIES: 2+ pulses, warm, well-perfused, no edema. NEUROLOGICAL: No facial droop. Power 5.5. in all extremities. Normal speech, gait not observed. PSYCH: Normal mood, normal affect. SKIN: Warm, dry, normal turgor, no rashes or lesions noted Laboratory Results - last 24 hr 10/22/18 10/22/18 10/22/18 18:38 18:38 18:38 WBC 13.0 H RBC 5.25 H Hgb 15.5 H Hct 44.4 D MCV 84.5 MCH 29.5 MCHC 34.9 RDW 12.9 Plt Count 229 D MPV 10.0 Absolute Neuts (auto) Neutrophils % Lymphocytes % Monocytes % Eosinophils % Basophils % Nucleated RBC % Sodium 133 L Potassium 2.7 L* Chloride 99 Carbon Dioxide 23 Anion Gap 11 BUN 7 Creatinine 0.7 Creat Clearance w eGFR > 60 Random Glucose 126 H Calcium 9.3 Phosphorus Magnesium Total Bilirubin 1.0 Direct Bilirubin AST 15 ALT 25 Alkaline Phosphatase 40 L Total Protein 8.6 H Albumin 4.5 Beta HCG, Quant 02992.0 Urine Color Urine Appearance Urine pH Ur Specific [place] Urine Protein Urine Glucose (UA) Urine Ketones Urine Blood Urine Nitrite Urine Bilirubin Urine Urobilinogen Ur Leukocyte Esterase Urine WBC (Auto) Urine RBC (Auto) Hyaline Casts U Random Total Protein Urine Creatinine 10/22/18 10/22/18 10/23/18 18:47 19:31 06:00 WBC 9.0 RBC 4.93 Hgb 14.1 Hct 41.9 MCV 85.1 MCH 28.5 MCHC 33.5 RDW 12.9 Plt Count 189 MPV 10.2 Absolute Neuts (auto) 5.3 Neutrophils % 58.9 D Lymphocytes % 32.8 D Monocytes % 5.7 Eosinophils % 1.8 D Basophils % 0.8 Nucleated RBC % 0 Sodium Potassium Chloride Carbon Dioxide Anion Gap BUN Creatinine Creat Clearance w eGFR Random Glucose Calcium Phosphorus Magnesium 2.0 Total Bilirubin Direct Bilirubin AST ALT Alkaline Phosphatase Total Protein Albumin Beta HCG, Quant Urine Color Ltyellow Urine Appearance Cloudy Urine pH 8.0 Ur Specific [place] 1.009 L Urine Protein 2+ H Urine Glucose (UA) Negative Urine Ketones Trace H Urine Blood Negative Urine Nitrite Negative Urine Bilirubin Negative Urine Urobilinogen Negative Ur Leukocyte Esterase Negative Urine WBC (Auto) None Urine RBC (Auto) None Hyaline Casts 3 U Random Total Protein Urine Creatinine 10/23/18 10/23/18 10/23/18 06:00 11:30 11:30 WBC RBC Hgb Hct MCV MCH MCHC RDW Plt Count MPV Absolute Neuts (auto) Neutrophils % Lymphocytes % Monocytes % Eosinophils % Basophils % Nucleated RBC % Sodium 136 Potassium 3.4 L Chloride 104 Carbon Dioxide 24 Anion Gap 8 BUN 5 L Creatinine 0.5 L Creat Clearance w eGFR > 60 Random Glucose 83 Calcium 8.5 Phosphorus 3.2 Magnesium 2.1 Total Bilirubin 1.5 H Direct Bilirubin 0.3 H AST 13 L ALT 20 Alkaline Phosphatase 32 L Total Protein 7.1 Albumin 3.7 Beta HCG, Quant Urine Color Urine Appearance Urine pH Ur Specific [place] Urine Protein Urine Glucose (UA) Urine Ketones Urine Blood Urine Nitrite Urine Bilirubin Urine Urobilinogen Ur Leukocyte Esterase Urine WBC (Auto) Urine RBC (Auto) Hyaline Casts U Random Total Protein Cancelled 16.8 H Urine Creatinine 48.0 Active Medications Generic Name Dose Route Start Last Admin Trade Name Freq PRN Reason Stop Dose Admin Labetalol HCl 100 mg 10/23/18 22:00 Normodyne - PO BID [facility] ASSESSMENT/PLAN: Patient is a 28 year old female presented to the ED with the chief complaint of headache and elevated blood pressure ( 180/100 mmHg) # induced hypertension no h.x hypertension, no h/o preeclampia/eclampsia during last . Unsure if it is preeclampia as pt is 9wks preg Was treated with Procardia at urgent care and in the ED here at [facility], pt complained of headache so it was stopped. started on Labetolol 50mg BID and dose increased to 100 mg PO BID Admitted in tele/continuous cardiac monitoring ECHO report noted: normal LV function, Normal RV function, normal EF. Mod MR , mild-mod TR No previous Echo to compare Pelvic ultrasound: 9weeks + 1 day single viable intrauterine . # Proteinuria UA ++ protein. Random protein 16.8. Urine creatinine 48 No h/o proteinuria. # FEN Not IV fluids Electrolytes WNL Regular diet (no fish, deli meats) # Prophylaxis For DVT: scds, early ambulation For GI: Not indicated # Code Status: Full Code # Dispo: Admitted in Tele. If BP is well controlled, d/c planning in AM. Illness, Investigation and Plan of care explained to the patient and her . They verbalized understanding. Case discussed with Dr. Sandoval. Visit type - Emergency Visit Emergency Visit: Yes ED Registration Date: 10/22/18 Care time: The patient presented to the Emergency Department on the above date and was hospitalized for further evaluation of their emergent condition. - New Patient This patient is new to me today: Yes Date on this admission: 10/23/18 - Critical Care Critical Care patient: No - Discharge Referral [facility] Med P.[facility].: No
--- NOTE | 2018-10-23 18:18 | ECHO ---
Name: HERNANDO RUBIO Exam:Adult Echocardiogram Study Date: 10/23/2018 12:24 PM Age: 28 yrs Reason For Study: HYPERTENSIVE URGENCY ASSESS LVF Height: 61 in Weight: 125 lb BSA: 1.5 m2 MMode/2D Measurements & Calculations IVSd: 0.77 cm Ao root diam: 2.3 cm LVIDd: 4.5 cm LA dimension: 3.0 cm LVIDs: 3.0 cm LVPWd: 0.72 cm EDV(Teich): 92.0 ml TAPSE: 2.5 cm ESV(Teich): 34.7 ml Doppler Measurements & Calculations MV E max tim: 57.3 cm/sec MV P1/2t max tim: 123.1 cm/sec MV A max tim: 83.4 cm/sec MV P1/2t: 65.6 msec MV E/A: 0.69 MV dec time: 0.21 sec MVA(P1/2t): 3.4 cm2 MV dec slope: 549.9 cm/sec2 Ao V2 max: 122.6 cm/sec LV V1 max P.3 mmHg Ao max P.0 mmHg LV V1 mean P.3 mmHg Ao V2 mean: 88.5 cm/sec LV V1 max: 75.9 cm/sec Ao mean P.4 mmHg LV V1 mean: 55.7 cm/sec Ao V2 VTI: 26.2 cm LV V1 VTI: 16.7 cm MR max tim: 502.3 cm/sec Med Peak E' Tim: 7.4 cm/sec MR max P.2 mmHg Med E/e': 7.7 Lat Peak E' Tim: 9.7 cm/sec Lat E/e': 5.9 Left Ventricle The left ventricular size, thickness and function are normal. Ejection Fraction = 55-60%. The transmi tral spectral Doppler flow pattern is suggestive of impaired LV relaxation. The left ventricular wall mary beth on is normal. There is no thrombus. Right Ventricle The right ventricle is normal size. The right ventricular systolic function is normal. Atria Normal left and right atrial size and function. There is no Doppler evidence for an atrial septal def ect. Mitral Valve There is mild mitral valve thickening. There is moderate mitral regurgitation. Tricuspid Valve There is Trace to mild tricuspid regurgitation. Right ventricular systolic pressure is normal. Aortic Valve There is mild aortic valve thickening. No hemodynamically significant valvular aortic stenosis. Pulmonic Valve The pulmonic valve is not well visualized. Great Vessels The aortic root is normal size. Pericardium/Pleura There is no pericardial effusion. Interpretation Summary The left ventricular size, thickness and function are normal Ejection Fraction = 55-60%. The transmitral spectral Doppler flow pattern is suggestive of impaired LV relaxation. The left ventricular wall motion is normal. There is no thrombus. The right ventricular systolic function is normal. The right ventricle is normal size. Normal left and right atrial size and function. There is no Doppler evidence for an atrial septal defect. There is mild mitral valve thickening. There is moderate mitral regurgitation. There is Trace to mild tricuspid regurgitation. Right ventricular systolic pressure is normal. There is mild aortic valve thickening. No hemodynamically significant valvular aortic stenosis. The pulmonic valve is not well visualized. The aortic root is normal size. There is no pericardial effusion. Joel Best MD 10/23/2018 06:17 PM
--- NOTE | 2018-10-23 18:20 | EKG ---
Test Reason : Blood Pressure : / mmHG Vent. Rate : 074 BPM Atrial Rate : 074 BPM P-R Int : 168 ms QRS Dur : 088 ms QT Int : 434 ms P-R-T Axes : 060 011 042 degrees QTc Int : 481 ms NORMAL SINUS RHYTHM PROLONGED QT ABNORMAL ECG WHEN COMPARED WITH ECG OF 22-OCT-2018 18:30, NO SIGNIFICANT CHANGE WAS FOUND Confirmed by JANET RAMSAY MD ([id number]) on 10/23/2018 6:19:54 PM Referred By: Confirmed By:JANET RAMSAY MD
[2018-10-24 07:41] LABS: HEMATOCRIT 43.2 % (32.4-45.2); HEMOGLOBIN 14.2 GM/dL (10.7-15.3); MCH 28.2 pg (25.7-33.7); MCHC 32.9 g/dl (32.0-36.0); MEAN CELL VOLUME 85.8 fl (80-96); MEAN PLT VOLUME 10.1 fl (7.5-11.1); PLATELET COUNT 198 K/MM3 (134-434); RBC 5.04 M/mm3 (3.60-5.2); RDW 12.9 % (11.6-15.6); WHITE BLOOD COUNT 7.5 K/mm3 (4.0-10.0)
[2018-10-24 08:35] LABS: ALBUMIN 3.8 g/dl (3.4-5.0); ALK PHOS 35 U/L (45-117); ANION GAP 11 MMOL/L (8-16); BILIRUBIN,TOTAL 1.3 mg/dL (0.2-1); BLOOD UREA NITROGEN 9 mg/dL (7-18); CHLORIDE 100 mmol/L (98-107); CO2 23 mmol/L (21-32); CREATININE 0.5 mg/dL (0.55-1.3); GLUCOSE,RANDOM 78 mg/dL (74-106); MAGNESIUM 2.2 mg/dL (1.8-2.4); PHOSPHOROUS 3.8 mg/dL (2.5-4.9); POTASSIUM 3.3 mmol/L (3.5-5.1); SGOT/AST 14 U/L (15-37); SGPT/ALT 20 U/L (13-61); SODIUM 134 mmol/L (136-145); TOT PROT 7.4 g/dl (6.4-8.2)
[2018-10-24] MEDS ORDERED: POTASSIUM CHLORIDE TABS 20 MEQ TABLET.ER (FP) PO ONE ×2 (08:38→10:36)
[2018-10-24] MEDS ORDERED: LABETALOL HCL 100 MG TABLET (FP) PO SCH (10:00)
[2018-10-24] MEDS ORDERED: PRENATAL VITAMINS W/ FOLIC ACID TABLET (FP) PO SCH (10:00)
--- NOTE | 2018-10-24 10:56 | PN ---
Progress Note, Physician Chief Complaint: The patient seen and examined in her room. Reports feeling well. No head aches. BP still remains elevated. The dosage of Labetelol has been increased. No joint pains, no shortness of breath. History of Present Illness: This is a 28 year old woman with no significant PMhx who presented with complaints of Head ache with N/V and found to be hypertensive. Pt was noted to be hypertensive at her OB office. No complications with prior 16 months ago. Head ache now improved, No weakness or numbness. No further N/V as an inpatient. - Current Medication List Current Medications: Active Medications Labetalol HCl (Normodyne -) 200 mg PO BID [facility] Last Admin: 10/24/18 09:03 Dose: 200 mg Multivit/Folic Acid/Iron ( Vitamins (Sjr) -) 1 tab PO DAILY [facility] - Objective Vital Signs: Vital Signs Temperature 98.1 F 10/24/18 08:00 Pulse Rate 66 10/24/18 08:00 Respiratory Rate 18 10/24/18 08:00 Blood Pressure 157/88 10/24/18 08:00 O2 Sat by Pulse Oximetry (%) 98 10/24/18 08:00 Constitutional: Yes: Well Nourished, Anxious Eyes: Yes: Conjunctiva Clear HENT: Yes: Atraumatic, Normocephalic Neck: Yes: Supple Cardiovascular: Yes: Regular Rate and Rhythm, S1, S2 Respiratory: Yes: Regular, CTA Bilaterally Gastrointestinal: Yes: Normal Bowel Sounds, Soft Genitourinary: No: CVA Tenderness - Left, CVA Tenderness - Right Edema: No Labs: CBC, BMP 10/24/18 06:30 10/24/18 06:30 Problem List - Problems (1) HTN (hypertension) Code(s): I10 - ESSENTIAL (PRIMARY) HYPERTENSION (2) Hypokalemia Code(s): E87.6 - HYPOKALEMIA (3) Code(s): Z34.90 - ENCNTR FOR SUPRVSN OF NORMAL , UNSP, UNSP TRIMESTER (4) Proteinuria Code(s): R80.9 - PROTEINURIA, UNSPECIFIED Assessment/Plan This is a 28 year old woman with no significant PMhx who presented with complaints of Head ache with N/V and found to be hypertensive. Pt was noted to be hypertensive at her OB office. No complications with prior 16 months ago. Head ache now improved, No weakness or numbness. No further N/V as an inpatient. BP remains elevated. Will observe on the increased dose of Labetelol. Hypokalemia persists. Maybe a component of respiratory alkalosis. Will redose KDur. If the BP remains elevated, and her need for Antihypertensives continues, she should be referred to a Perinatologist. Thanks again. Will follow with you. Nikunj Bazzi
--- NOTE | 2018-10-24 11:47 | CONSULT ---
Consult Consult Specialty:: Cardiology Referred by:: Medicine Reason for Consultation:: HTN in - History of Present Illness Chief Complaint: Headache History of Present Illness: 28 yo female 2nd now 9 weeks Has had routine care 1st 16 months ago, no complication, no pre/eclampsia or HTN No underlying diagnosis of HTN Now presents after 2 days of frontal headache in the setting of elevated BP ( SBP 180/100s) Saw OB and started on Nifedipine 30mg yesterday but minimal relief of headache No other end organ symptoms, no visual changes, chest pain, dyspnea. Some palps. Started on Labatelol 200mg now with improved BP control and resolution of her headache No focal neurological symptoms - History Source History Provided By: Patient, Family Member Limitations to Obtaining History: No Limitations - Past Surgical History Past Surgical History: Yes: None - Alcohol/Substance Use Hx Alcohol Use: No History of Substance Use: reports: None - Smoking History Smoking history: Never smoked Have you smoked in the past 12 months: No - Social History History of Recent Travel: No Home Medications - Allergies Allergies/Adverse Reactions: Allergies Allergy/AdvReac Type Severity Reaction Status Date / Time No Known Allergies Allergy Verified 06/13/17 11:03 - Home Medications Home Medications: Ambulatory Orders Vit No.130/Iron/Folic [ Vitamins] 1 each PO DAILY 06/13/17 Nifedipine [Procardia Xl] 30 mg PO DAILY 10/22/18 Family Disease History - Family Disease History Family Disease History: Diabetes: Father (HTN), Other: Mother (Healthy) Review of Systems - Review of Systems Constitutional: reports: No Symptoms Eyes: reports: No Symptoms HENT: reports: No Symptoms Neck: reports: No Symptoms Cardiovascular: reports: Palpitations Respiratory: reports: No Symptoms Gastrointestinal: reports: No Symptoms Genitourinary: reports: No Symptoms Neurological: reports: Headache Psychiatric: reports: No Symptoms Physical Exam Vital Signs: Vital Signs Temperature 98.1 F 10/24/18 08:00 Pulse Rate 66 10/24/18 08:00 Respiratory Rate 18 10/24/18 08:00 Blood Pressure 157/88 10/24/18 08:00 O2 Sat by Pulse Oximetry (%) 98 10/24/18 08:00 Constitutional: Yes: Well Nourished, No Distress Eyes: Yes: WNL HENT: Yes: WNL Neck: Yes: WNL Cardiovascular: Yes: WNL, Regular Rate and Rhythm Respiratory: Yes: WNL Gastrointestinal: Yes: Normal Bowel Sounds Musculoskeletal: Yes: WNL Extremities: Yes: WNL Edema: No Labs: CBC, BMP 10/24/18 06:30 10/24/18 06:30 Imaging - Results EKG: Image Reviewed (ECG done on 10/23/2018 at 14:36 with NSR at 74, prolonged QTc 481msec.) Other: Report Reviewed (Echo: Normal biventricular size and function, moderate MR) Assessment/Plan 28 yo G now presenting with headache in the setting of hypertension in 1st trimester of preg. 1) HTN -According to notes has been evalauted for eclampisa/pre-eclampsia -BP much improved (last 134/70s) on Labetelol 200mg PO BID which is drug of choice for HTN in preg and would continue at this dose -Symptoms have resolved -Goal BP would be <150/90s. -Echo with moderate MR, but this likely secondary to well known physiologic CV changes with (increased volume) and would repeat after completed.
--- NOTE | 2018-10-24 14:34 | PN ---
Physical Exam: SUBJECTIVE: Patient seen and examined, no further headache, asymptomatic. OBJECTIVE: Vital Signs Period Temp Pulse Resp BP Sys/Burroughs Pulse Ox Last 24 Hr 97.6 F-98.9 F 59-78 15-20 148-177/57-105 98-98 GENERAL: The patient is awake, alert, and fully oriented, in no acute distress. HEAD: Normal with no signs of trauma. EYES: PERRL, extraocular movements intact, sclera anicteric, conjunctiva clear. No ptosis. ENT: Ears normal, nares patent, oropharynx clear without exudates, moist mucous membranes. NECK: Trachea midline, full range of motion, supple. LUNGS: Breath sounds equal, clear to auscultation bilaterally, no wheezes, no crackles, no accessory muscle use. HEART: Regular rate and rhythm, S1, S2 ABDOMEN: Soft, nontender, normoactive bowel sounds, EXTREMITIES: 2+ pulses, warm, well-perfused, no edema. NEUROLOGICAL: Cranial nerves II through XII grossly intact. Normal speech, gait not observed. PSYCH: Normal mood, normal affect. SKIN: Warm, dry, normal turgor, no rashes or lesions noted Laboratory Results - last 24 hr 10/24/18 10/24/18 06:30 06:30 WBC 7.5 RBC 5.04 Hgb 14.2 Hct 43.2 MCV 85.8 MCH 28.2 MCHC 32.9 RDW 12.9 Plt Count 198 MPV 10.1 Sodium 134 L Potassium 3.3 L Chloride 100 Carbon Dioxide 23 Anion Gap 11 BUN 9 Creatinine 0.5 L Creat Clearance w eGFR > 60 Random Glucose 78 Calcium 9.0 Phosphorus 3.8 Magnesium 2.2 Total Bilirubin 1.3 H AST 14 L ALT 20 Alkaline Phosphatase 35 L Total Protein 7.4 Albumin 3.8 Active Medications Generic Name Dose Route Start Last Admin Trade Name Freq PRN Reason Stop Dose Admin Labetalol HCl 200 mg 10/24/18 10:00 10/24/18 09:03 Normodyne - PO 200 mg BID CHAVEZ Administration Multivit/Folic Acid/Iron 1 tab 10/24/18 10:00 10/24/18 11:17 Vitamins (Sjr) - PO 1 tab DAILY CHAVEZ Administration EKG manual around 420 ASSESSMENT/PLAN: 28 yof , 9 weeks , admitted with headache and hypertensive urgency -Hypertensive urgency -Headache, likely from above, resolved -9 weeks -Proteinuria -Moderate mitral regurgitation, suspect physiological from -Hypokalemia Plan: Labetalol increased. 2D echo noted. Ob US noted. nephrology/Cardioly input appreciated. Ob input if concerns. Dispo d/c later today if BP improved and no new concerns. Plan discussed with patient and RN in detail, all questions answered. Visit type - Emergency Visit Emergency Visit: Yes ED Registration Date: 10/22/18 Care time: The patient presented to the Emergency Department on the above date and was hospitalized for further evaluation of their emergent condition. - New Patient This patient is new to me today: No - Critical Care Critical Care patient: No - Discharge Referral Referred to [facility] Med P.C.: No
--- NOTE | 2018-10-24 17:03 | DS ---
Physical Exam: SUBJECTIVE: Patient seen and examined, no headache, chest pain or new concerns, feels well. OBJECTIVE: Vital Signs Period Temp Pulse Resp BP Sys/Burroughs Pulse Ox Last 24 Hr 97.6 F-98.9 F 59-77 15-20 147-177/57-105 98-98 PHYSICAL EXAM GENERAL: The patient is awake, alert, and fully oriented, in no acute distress. HEAD: Normal with no signs of trauma. EYES: PERRL, extraocular movements intact, sclera anicteric, conjunctiva clear. No ptosis. ENT: Ears normal, nares patent, oropharynx clear without exudates, moist mucous membranes. NECK: Trachea midline, full range of motion, supple. LUNGS: Breath sounds equal, clear to auscultation bilaterally, no wheezes, no crackles, no accessory muscle use. HEART: Regular rate and rhythm, S1, S2 ABDOMEN: Soft, nontender, normoactive bowel sounds, EXTREMITIES: 2+ pulses, warm, well-perfused, no edema. NEUROLOGICAL: Cranial nerves II through XII grossly intact. Normal speech, gait not observed. PSYCH: Normal mood, normal affect. SKIN: Warm, dry, normal turgor, no rashes or lesions noted LABS Laboratory Results - last 24 hr 10/24/18 10/24/18 06:30 06:30 WBC 7.5 RBC 5.04 Hgb 14.2 Hct 43.2 MCV 85.8 MCH 28.2 MCHC 32.9 RDW 12.9 Plt Count 198 MPV 10.1 Sodium 134 L Potassium 3.3 L Chloride 100 Carbon Dioxide 23 Anion Gap 11 BUN 9 Creatinine 0.5 L Creat Clearance w eGFR > 60 Random Glucose 78 Calcium 9.0 Phosphorus 3.8 Magnesium 2.2 Total Bilirubin 1.3 H AST 14 L ALT 20 Alkaline Phosphatase 35 L Total Protein 7.4 Albumin 3.8 2D echo -LV size/thickness/function are normal EF 55-60%, impaired LV relaxation, moderate mitral regurgitation, trace to mild TR, RV function normal EKG NSR QTC reported 481, manually calculated 420s OB US - stable viable intrauterine 9 weeks 1 day HOSPITAL COURSE: Date of Admission:10/22/18 Date of Discharge: 10/24/18 Minutes to complete discharge: 40 Discharge Summary Reason For Visit: HYPERTENSIVE URGENCY HYPOKALEMIA Current Active Problems HTN (hypertension) (Acute) Hypokalemia (Acute) (Acute) Proteinuria (Acute) Hospital Course: 28 yof 9 weeks came with headaches. Was seen by her OB a day ago , found hypertensive started on Procardia 30 mg daily. Reported her headaches preceded procardia, and given persistent symptoms came to ED and was noted hypertensive, systolics 150s and higher and diastolic 90s-100s. She was started on labetalol and titrated upto 200 mg twice daily with improvement in her Blood pressure. her headaches resolved on day of admission and no recurrence was noted since. She also had proteinuria and nephrology was consulted. She had 2D echo with moderate mitral regurgitation and impaired LV relaxation. Her QTc was noted 480s. cardiology was consulted and she was advised to continue labetalol. Her Mitral regurgitation was likely physiologic from her and she is advised follow up 2D echo after her . Her telemetry was uneventful. Her potassium was noted low at 2.7 and was noted around 3.3-3.4 with repletion. She is advised to continue with her PO potassium supplementation on discharge with follow up levels in few days. She is advised follow up with cardiology/nephrology and also referral to perinatologist if her BP is persistently elevated. Hospital course, findings and discharge instructions have been discussed in detail with patient and who relay understanding of the same. Condition: Good - Instructions Diet, Activity, Other Instructions: Medications: Labetalol 200 mg twice daily Potassium 40 meq daily for 2-3 days. Continue your vitamins as below. Stop your procardia. Activity: rest and light activity as tolerated Recommend home BP monitoring and notify your doctor if persistently elevated > 140/90. Follow uP; Dr. Jones on Friday or Friday for BP check and blood draw for potassium ( basic metabolic panel) If you have persistently elevated BP > 140/90, you are advised to follow up with a perinatologist and can discuss with your medical doctor or package checker about the same. lining cutter follow up in 1-2 weeks (you were found with protein in urine) Cardiology follow up for repeat 2D echo after and further treatment as needed. If you notice any new headache, vision, changes, chest pain, trouble breathing, bleeding or any new concerns, please call 911 or come to ED immediately. Referrals: Tommy Jones MD [Primary Care Provider] - Fernando Garcia MD [Staff Physician] - Krupa Mishra MD [Staff Physician] - Disposition: HOME - Home Medications Comprehensive Discharge Medication List: Ambulatory Orders Vit No.130/Iron/Folic [ Tablet] 1 each PO DAILY 06/13/17 Labetalol HCl [Normodyne -] 200 mg PO BID #60 tablet 10/24/18 Potassium Chloride [K-Dur -] 40 meq PO DAILY 3 Days #6 tablet.er 10/24/18 This patient is new to me today: No Emergency Visit: Yes ED Registration Date: 10/22/18 Care time: The patient presented to the Emergency Department on the above date and was hospitalized for further evaluation of their emergent condition. Critical Care patient: No - Discharge Referral Referred to [facility] Med P.C.: No
[2018-10-24 19:35] VITALS: BP 156/92; PULSE 62; TEMP 98
== END 2018-10-24 18:08 | disposition home or self-care (01) ==
LOC: JER 16:59 → JERBED 21:03 → J4W 10-23 20:41
PROVIDERS: ADMIT Internal Medicine; ATTEND Hospitalist
CPT/HCPCS: 36415; 76801-TC; 80053; 81003; 81015; 82248; 82570; 83735; 84100; 84156; 84702; 85025; 85027; 87086; 93005; 93010; 93306-TC; 99284-25; G0378; J7030

== ENCOUNTER 2019-03-31 11:49 | Inpatient (IN) | payer OTHER ==
[2019-03-31 13:25] LABS: BASO % 0.4 % (0-2.0); EOS % 1.5 % (0-4.5); HEMATOCRIT 35.6 % (32.4-45.2); HEMOGLOBIN 12.4 GM/dL (10.7-15.3); LYMPH % 16.4 % (8-40); MCH 31.1 pg (25.7-33.7); MCHC 34.8 g/dl (32.0-36.0); MEAN CELL VOLUME 89.4 fl (80-96); MEAN PLT VOLUME 10.4 fl (7.5-11.1); MONO % 6.8 % (3.8-10.2); NEUT % 74.9 % (42.8-82.8); PLATELET COUNT 133 K/MM3 (134-434); RBC 3.98 M/mm3 (3.60-5.2); RDW 13.1 % (11.6-15.6); WHITE BLOOD COUNT 10.4 K/mm3 (4.0-10.0)
[2019-03-31 13:38] LABS: URINE APPEARANCE CLEAR; URINE BILIRUBIN NEGATIVE (NEGATIVE); URINE COLOR YELLOW; URINE GLUCOSE (UA) NEGATIVE (NEGATIVE); URINE KETONE NEGATIVE (NEGATIVE); URINE LEUK ESTERASE NEGATIVE (NEGATIVE); URINE NITRITE NEGATIVE (NEGATIVE); URINE PROTEIN NEGATIVE (NEGATIVE)
[2019-03-31 13:41] LABS: INR 0.91 (0.83-1.09); PROTHROMBIN TIME (PATIENT) 10.7 SEC (9.7-13.0)
[2019-03-31 13:44] LABS: ACTIVATED PTT 25.7 SECONDS (25.2-36.5)
[2019-03-31 13:49] LABS: ALBUMIN 3.1 g/dl (3.4-5.0); BILIRUBIN,TOTAL 0.6 mg/dL (0.2-1); BLOOD UREA NITROGEN 7.1 mg/dL (7-18); CALCIUM 8.9 mg/dL (8.5-10.1); CREATININE 0.4 mg/dL (0.55-1.3); POTASSIUM 3.7 mmol/L (3.5-5.1); TOT PROT 6.4 g/dl (6.4-8.2); URIC ACID 3.6 mg/dL (2.6-7.2)
[2019-03-31] MEDS ORDERED: METHYLDOPA 250 MG TABLET PO SCH (17:15)
--- NOTE | 2019-03-31 17:25 | HP ---
Past Medical History - Primary Care Physician PCP:: Del Herzog - Admission Chief Complaint: 29yo P1 with at EGA 32w1d with likely chronic HTN and possible superimposed preeclampsia admitted for evaluation. History of Present Illness: The pt was seen for the first time at A ~10wk of and noted to have in-office BP 172/91. She was initially started on Procardia but did not tolerate meds due to headache. She was subsequently seen by Cardiology (Dr. Broussard ) and BP was better controlled with Aldomet and Labetalol. The pt's BP's during care were mostly 140-150's/80-90's range. The pt was seen today in the office with BP 172/89, 180/100, 180/100. She is taking her medications as scheduled. She is asymptomatic for s/sx's of preeclampsia. The pt denies headache, scotoma, blurry vision, abdominal pain. She states good movement. The pt was also seen by MFM today for f/u of growth and noted to have suspected IUGR w/probably uteroplacental insufficiency. The MFM evaluation took place before the BP was taken. The S/D was elevated but w/o absent and/or reverse end-diastolic flow. The recommendation was to continue antepartum surveillance with NST twice/wk, BPP weekly; f/u growth and Dopplers in 2- 3 weeks. Once the elevated BP was noted the pt was referred to L&D for evaluation to r/o superimposed preeclampsia. 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's, CVA, Dementia, Migraine, Multiple Sclerosis, Peripheral Neuropathy, Parkinson's, Seizure, Syncope, TIA, Vertigo, Other Cardiovascular: Yes: HTN Pulmonary: No: Asthma, Bronchitis, Cancer, COPD, O2 Dependent, Pneumonia, Previously Intubated, Pulmonary Embolus, Pulmonary Fibrosis, Sleep Apnea, Other Gastrointestinal: No: Ascites, Cancer, Constipation, Crohn's Disease, Diverticulitis, Diverticulosis, Esophageal Varices, Gastritis, GERD, GI Bleed, Hemorrhoids, Hiatal Hernia, Inflamatory Bowel Disease, Irritable Bowel Disease, Pancreatitis, Peptic Ulcer Disease, Ulcerative Colitis, Other Hepatobiliary: No: Cirrhosis, Cholelithiasis, Cholecystitis, Choledocholithiasis , Hepatitis A, Hepatitis B, Hepatitis C, Other Renal/: No: Renal Failure, Renal Inusuff, BPH, Cancer, Hematuria, Hemodialysis , Neurogenic Bladder, Renal Calculi, UTI, Other ...: 2 ...Para: 1 ( w/o complications (nl BP in pregn/delivery)) ...Term: 1 ...LMP: 08/18/18 ... Weeks Gestation by Dates: 32.1 ...EDC by Dates: 05/25/19 ...EDC by Sono: 05/25/19 Heme/Onc: No: Anemia, B12 Deficiency, Bleeding Disorder, Cancer, Current Chemotherapy, Current Radiation Therapy, Hemochromatosis, Hypercoaguable State, Myeloproliferative Synd, Sickle Cell Disease, Sickle Cell Trait, Thrombocytopenia, Other Infectious Disease: No: AIDS, C-Diff, Herpes Zoster, HIV, MRSA, STD's, Tuberculosis, VREF, Other Psych: No: Addictions, Anxiety, Bipolar, Depression, Panic, Psychosis, Schizophrenia, Other Musculoskeletal: No: Bursitis, Chronic low back pain, Hemiparesis, Hemiplegia, Osteoarthritis, Paraplegia, Other Rheumatology: No: Fibromyalgia, Gout, Lupus, Rheumatoid Arthritis, Sarcoidosis, Vasculitis, Other ENT: No: Allergic Rhinitis, Sinusitis, Other Endocrine: No: [place]'s Disease, Elizabeth's Disease, Diabetes Insipidus, Diabetes Mellitus, Hyperparathyroidism, Hyperthyroidism, Hypothyroidism, Osteopenia, SIADH, Other Dermatology: No: Basal Cell, Cellulitis, Eczema, Melanoma, Psoriasis, Squamous Cell, Other - Past Surgical History Past Surgical History: Yes: None Hx Myomectomy: No Hx Transabdominal Cerclage: No - Smoking History Smoking history: Never smoked Have you smoked in the past 12 months: No - Alcohol/Substance Use Hx Alcohol Use: No History of Substance Use: reports: None - Social History Usual Living Arrangement: Yes: With Spouse, With Child ADL: Independent 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 History of Recent Travel: No Home Medications - Allergies Allergies/Adverse Reactions: Allergies Allergy/AdvReac Type Severity Reaction Status Date / Time No Known Allergies Allergy Verified 03/31/19 12:39 - Home Medications Home Medications: Ambulatory Orders Vit No.130/Iron/Folic [ Tablet] 1 each PO DAILY 06/13/17 Aspirin [ASA -] 81 mg PO DAILY 03/31/19 Labetalol HCl [Normodyne -] 400 mg PO BID 03/31/19 Methyldopa [Aldomet -] 250 mg PO TID 03/31/19 Family Disease History - Family Disease History Family Disease History: Diabetes: Father (HTN) Review of Systems Findings/Remarks: Well appearing - Review of Systems Constitutional: reports: No Symptoms Eyes: reports: No Symptoms HENT: reports: No Symptoms Neck: reports: No Symptoms Cardiovascular: reports: No Symptoms Respiratory: reports: No Symptoms Gastrointestinal: reports: No Symptoms Genitourinary: reports: No Symptoms Breasts: reports: No Symptoms Reported Musculoskeletal: reports: No Symptoms Integumentary: reports: No Symptoms Neurological: reports: No Symptoms Endocrine: reports: No Symptoms Hematology/Lymphatic: reports: No Symptoms Psychiatric: reports: No Symptoms Pain Intensity: 0 Physical Exam - Maternity Vital Signs: Vital Signs Temperature 97.8 F 03/31/19 14:20 Pulse Rate 72 03/31/19 16:07 Respiratory Rate 20 03/31/19 16:07 Blood Pressure 161/94 03/31/19 16:07 O2 Sat by Pulse Oximetry (%) Constitutional: Yes: Well Nourished, No Distress, Calm Eyes: Yes: WNL, Conjunctiva Clear, EOM Intact HENT: Yes: WNL, Atraumatic, Normocephalic Neck: Yes: WNL, Supple, Trachea Midline Cardiovascular: Yes: WNL, Regular Rate and Rhythm Lungs: Clear to auscultation, Normal air movement Breast(s): Yes: WNL - Abdominal Exam/OB Fundal Height: 32 Number of Fetuses: Single Presentation: Vertex Contractions: No Heart Rate (range): 135 Heart Rate Location: Midline Category: I Accelerations: Non-Uniform Decelerations: None - Vaginal Exam/OB Vaginal Bleediing: No Speculum Exam: No Dilatation (cm): 0 Effacement (%): 0 Amniotic Membrane Status: Intact Presentation: Vertex/Position Station: -4 - Physical Exam Musculoskeletal: Yes: WNL Extremities: Yes: WNL Edema: No Integumentary: Yes: WNL Deep Tendon Reflex Grade: Normal +2 Psychiatric: Yes: WNL, Alert, Oriented - Labs Lab Results: CBC, BMP 03/31/19 12:50 03/31/19 12:50 Hemorrhage Risk Assessment - Risk Factors Medium Risk Factors: Yes: None High Risk Factors: Yes: None Risk Score: 1 Risk Level: Medium Risk Imaging - Results Ultrasound: Report Reviewed Assessment/Plan 29yo P1 with at EGA 32w1d and chronic HTN on meds, noted to have BP 170-180/80-90, admitted for evaluation due to suspected superimposed preeclampsia. Pt is also with suspected IUGR ( growth <3rd %ile). The pt is stable, asymptomatic, w/o edema, with normal labs (no proteinuria), and reactive NST. It is unclear at this point if the patient dose, in fact have superimposed preeclampsia. The plan is to stabilize BP, assess 24hr urine collection for protein, and start steroids course. If the patient's BP continues to be systolic >160 and/or diastolic >105, she develops symptoms of preeclampsia, abn labs, or indications, plan to proceed with delivery. Monitor on L&D Strict I/O Start steroids Continue/ adjust BP meds. The Hospital does not have Aldomet in-stock. I consulted Dr. Broussard to help control BP. Acceptable range would be 130-150/80-100.
[2019-03-31 17:28] VITALS: BMI 26.5
[2019-03-31] MEDS ORDERED: BETAMET ACET/BETAMET NA PH 30 MG/5 ML VIAL ONE (17:35)
[2019-03-31] MEDS: BETAMET ACET/BETAMET NA PH 30 MG/5 ML VIAL IM SCH (17:47)
[2019-03-31] MEDS: ALDOMET PO SCH (20:40)
[2019-03-31] MEDS ORDERED: LABETALOL HCL 200 MG TABLET (FP) ONE ×2 (21:54→22:00)
[2019-03-31] MEDS: LABETALOL HCL 200 MG TABLET (FP) PO SCH (22:05)
[2019-04-01] MEDS: ALDOMET PO SCH ×3 (05:44→22:00)
[2019-04-01 05:58] LABS: BASO % 0.2 % (0-2.0); HEMATOCRIT 41.5 % (32.4-45.2); HEMOGLOBIN 14.1 GM/dL (10.7-15.3); LYMPH % 8.7 % (8-40); MCH 30.9 pg (25.7-33.7); MCHC 34.1 g/dl (32.0-36.0); MEAN CELL VOLUME 90.8 fl (80-96); MEAN PLT VOLUME 10.6 fl (7.5-11.1); MONO % 1.7 % (3.8-10.2); NEUT % 89.4 % (42.8-82.8); PLATELET COUNT 158 K/MM3 (134-434); RBC 4.57 M/mm3 (3.60-5.2); RDW 13.4 % (11.6-15.6); WHITE BLOOD COUNT 11.6 K/mm3 (4.0-10.0)
[2019-04-01 06:10] LABS: INR 0.88 (0.83-1.09); PROTHROMBIN TIME (PATIENT) 10.4 SEC (9.7-13.0)
[2019-04-01 06:13] LABS: ACTIVATED PTT 31.9 SECONDS (25.2-36.5)
[2019-04-01 06:20] LABS: ALBUMIN 3.4 g/dl (3.4-5.0); BILIRUBIN,TOTAL 0.6 mg/dL (0.2-1); BLOOD UREA NITROGEN 9.5 mg/dL (7-18); CALCIUM 8.8 mg/dL (8.5-10.1); CREATININE 0.6 mg/dL (0.55-1.3); POTASSIUM 3.8 mmol/L (3.5-5.1); TOT PROT 7.3 g/dl (6.4-8.2)
[2019-04-01] MEDS ORDERED: LABETALOL HCL 200 MG TABLET (FP) ONE ×2 (09:14→22:39)
[2019-04-01] MEDS: LABETALOL HCL 200 MG TABLET (FP) PO SCH ×2 (09:50→22:00)
[2019-04-01] MEDS: PRENATAL VITAMINS W/ FOLIC ACID TABLET (FP) PO SCH (09:51)
[2019-04-01] MEDS ORDERED: [UNRECOGNIZED DRUG - REMARK] PO SCH (10:00)
--- NOTE | 2019-04-01 10:04 | PN ---
Progress Note (SOAP) - Subjective History of Present Illness: Patient without complaints. Denies headache, change in vision, right upper quadrant pain Reports movement, dneies leakage of fluid, vaginal bleeding or contractions - Current Medications Current Medications: Active Medications Betamethasone Acet/Betameth SodPhos (Celestone Soluspan -) 12 mg IM Q24H [facility] Stop: 04/01/19 17:46 Last Admin: 03/31/19 17:47 Dose: 12 mg Labetalol HCl (Normodyne -) 400 mg PO BID [facility] Last Admin: 04/01/19 09:50 Dose: 400 mg Aldomet (Methyldopa) 250mg Tablets Non- Formulary Med 1 each PO TID [facility] Last Admin: 04/01/19 05:44 Dose: 1 each Multivit/Folic Acid/Iron ( Vitamins (Sjr) -) 1 tab PO DAILY [facility] Last Admin: 04/01/19 09:51 Dose: 1 tab - Objective Vital Signs: Vital Signs Temperature 98.2 F 04/01/19 09:00 Pulse Rate 85 04/01/19 09:00 Respiratory Rate 18 04/01/19 09:00 Blood Pressure 131/82 04/01/19 09:00 O2 Sat by Pulse Oximetry (%) Constitutional: Yes: Well Nourished, No Distress, Calm Cardiovascular: Yes: Regular Rate and Rhythm Respiratory: Yes: Regular, CTA Bilaterally Gastrointestinal: Yes: Soft. No: Tenderness Extremities: Yes: WNL Edema: No Integumentary: Yes: WNL ...Motor Strength: Yes: WNL Psychiatric: Yes: WNL Labs Lab Results: CBC, BMP 04/01/19 05:40 04/01/19 05:40 Assessment/Plan 29 yo with suspected cHTN admitted for observation, 24 H urine protein and BP monitoring 1. labile BPs, no signs/sx PEC Awaiting cardiology consult Currently on aldomet/labetalol 24 H urine in process 2. s/p celestone #1; second injection today Category I FHT, fetus does not require intervention 3. No signs of labor 4. Will continue to monitor
--- NOTE | 2019-04-01 14:15 | CON.CARD ---
Consult Consult Specialty:: Cardiology Referred by:: Del Herzog MD Reason for Consultation:: Labile hypertension - History of Present Illness Chief Complaint: Labile hypertension History of Present Illness: 28 yo [place] female h/o labile hypertension, 32 IUP second , labile hypertension (ruled out for renal artery stenosis), maintained on labetolol and aldomet admitted for same. She remains asymptomatic and denies chest pain, dyspnea, near or true syncope, palpitations, orthopnea, PND or LE edema. Reports medication and diet compliance. She is asymptomatic for s/sx's of preeclampsia. The pt denies headache, scotoma, blurry vision, abdominal pain. She states good movement. 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: Alzheimer's, CVA, Dementia, Migraine, Multiple Sclerosis, Peripheral Neuropathy, Parkinson's, Seizure, Syncope, TIA, Vertigo, Other Cardio/Vascular: Yes: HTN Pulmonary: No: Asthma, Bronchitis, Cancer, COPD, O2 Dependent, Pneumonia, Previously Intubated, Pulmonary Embolus, Pulmonary Fibrosis, Sleep Apnea, Other Gastrointestinal: No: Ascites, Cancer, Constipation, Crohn's Disease, Diverticulitis, Diverticulosis, Esophageal Varices, Gastritis, GERD, GI Bleed, Hemorrhoids, Hiatal Hernia, Inflamatory Bowel Disease, Irritable Bowel Disease, Pancreatitis, Peptic Ulcer Disease, Ulcerative Colitis, Other Hepatobiliary: No: Cirrhosis, Cholelithiasis, Cholecystitis, Choledocholithiasis , Hepatitis A, Hepatitis B, Hepatitis C, Other Renal/: No: Renal Failure, Renal Inusuff, BPH, Cancer, Hematuria, Hemodialysis , Neurogenic Bladder, Renal Calculi, UTI, Other Infectious Disease: No: AIDS, C-Diff, Herpes Zoster, HIV, MRSA, STD's, Tuberculosis, VREF, Other Psych: No: Addictions, Anxiety, Bipolar, Depression, Panic, Psychosis, Schizophrenia, Other Musculoskeletal: No: Bursitis, Chronic low back pain, Hemiparesis, Hemiplegia, Osteoarthritis, Paraplegia, Other Rheumatology: No: Fibromyalgia, Gout, Lupus, Rheumatoid Arthritis, Sarcoidosis, Vasculitis, Other ENT: No: Allergic Rhinitis, Sinusitis, Other Endocrine: No: Isaac's Disease, Ridgeland's Disease, Diabetes Insipidus, Diabetes Mellitus, Hyperparathyroidism, Hyperthyroidism, Hypothyroidism, Osteopenia, SIADH, Other Dermatology: No: Basal Cell, Cellulitis, Eczema, Melanoma, Psoriasis, Squamous Cell, Other - Past Surgical History Past Surgical History: Yes: None - Alcohol/Substance Use Hx Alcohol Use: No History of Substance Use: reports: None - Smoking History Smoking history: Never smoked Have you smoked in the past 12 months: No - Social History ADL: Independent 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 History of Recent Travel: No Home Medications - Allergies Allergies/Adverse Reactions: Allergies Allergy/AdvReac Type Severity Reaction Status Date / Time No Known Allergies Allergy Verified 03/31/19 12:39 - Home Medications Home Medications: Ambulatory Orders Vit No.130/Iron/Folic [ Tablet] 1 each PO DAILY 06/13/17 Aspirin [ASA -] 81 mg PO DAILY 03/31/19 Labetalol HCl [Normodyne -] 400 mg PO BID 03/31/19 Methyldopa [Aldomet -] 250 mg PO TID 03/31/19 Family Disease History - Family Disease History Family Disease History: Diabetes: Father (HTN), Other: Mother (Healthy) Vital Signs: Vital Signs Temperature 97.4 F L 04/01/19 10:00 Pulse Rate 74 04/01/19 13:53 Respiratory Rate 20 04/01/19 13:53 Blood Pressure 164/97 04/01/19 13:53 O2 Sat by Pulse Oximetry (%) Constitutional: Yes: No Distress, Calm, Thin Neck: Yes: Supple Respiratory: Yes: Regular, CTA Bilaterally Gastrointestinal: Yes: Normal Bowel Sounds, Soft Cardiovascular: Yes: Regular Rate and Rhythm JVD: No Carotid Bruit: No Heart Sounds: Yes: S1, S2 Edema: No - Other Data Labs, Other Data: CBC, BMP 04/01/19 05:40 04/01/19 05:40 INR, PTT INR 0.88 (0.83-1.09) 04/01/19 05:40 Fibrinogen 397.0 mg/dL (238-498) 03/31/19 12:50 Problem List - Problems (1) Labile hypertension Code(s): R09.89 - OTH SYMPTOMS AND SIGNS INVOLVING THE CIRC AND RESP SYSTEMS (2) Code(s): Z34.90 - ENCNTR FOR SUPRVSN OF NORMAL , UNSP, UNSP TRIMESTER Qualifiers: Weeks of gestation: 32 weeks Qualified Code(s): Z3A.32 - 32 weeks gestation of Assessment/Plan 1. Labile hypertension 2. 32 IUP P:1. Continue labetolol 400 bid and aldomet 250 tid, may uptitrate labetolol as hemodynamics tolerate. 2. 24 hr urine protein collection 3. Thank you for consultative opportunity
[2019-04-01 14:51] LABS: URINE TOTAL VOLUME 2200 mL
[2019-04-01 14:53] LABS: URINE 24 HOUR CREATININE 917.4 MG/24HR (600-1800); URINE CREATININE 41.7 mg/dL (20-275); URINE PROTEIN 11 mg/dl (5.0-11.9)
[2019-04-01] MEDS: BETAMET ACET/BETAMET NA PH 30 MG/5 ML VIAL IM SCH (17:53)
--- NOTE | 2019-04-01 21:00 | PN ---
Progress Note (SOAP) - Subjective Chief Complaint: Pt w/o complaints. She is asymptomatic for s/sx's of preeclampsia. The pt denies headache, blurry vision, abdominal pain. She reports good FM. History of Present Illness: The BP is high and Labetolol was changed this afternoon. The pt completed steroids and 24hr urine collection. - Current Medications Current Medications: Active Medications Labetalol HCl (Normodyne -) 400 mg PO TID [facility] Aldomet (Methyldopa) 250mg Tablets Non- Formulary Med 1 each PO TID [facility] Last Admin: 04/01/19 13:54 Dose: 1 each Multivit/Folic Acid/Iron ( Vitamins (Sjr) -) 1 tab PO DAILY [facility] Last Admin: 04/01/19 09:51 Dose: 1 tab - Objective Vital Signs: Vital Signs Temperature 98.2 F 04/01/19 18:00 Pulse Rate 71 04/01/19 20:00 Respiratory Rate 20 04/01/19 20:00 Blood Pressure 181/87 H 04/01/19 20:00 O2 Sat by Pulse Oximetry (%) Constitutional: Yes: Well Nourished, No Distress, Calm Eyes: Yes: WNL, Conjunctiva Clear, EOM Intact HENT: Yes: WNL, Atraumatic, Normocephalic Neck: Yes: WNL, Supple, Trachea Midline Cardiovascular: Yes: WNL, Regular Rate and Rhythm Respiratory: Yes: WNL, Regular, CTA Bilaterally Gastrointestinal: Yes: WNL, Normal Bowel Sounds, Soft, Other (Gravid, non-tender ) Genitourinary: Yes: WNL Musculoskeletal: Yes: WNL Extremities: Yes: WNL Peripheral Pulses WNL: Yes Edema: No Integumentary: Yes: WNL Neurological: Yes: WNL, Alert, Oriented ...Motor Strength: Yes: WNL Psychiatric: Yes: WNL, Alert, Oriented Additional Findings/Remarks: FHT with baseline 140 and moderate variability, (+) accels, no decels, no contractions, Labs Lab Results: CBC, BMP 04/01/19 05:40 04/01/19 05:40 Assessment/Plan 29yo P1 with at EGA 32w2d and chronic HTN on meds, possible superimposed PEC, also with suspected IUGR ( growth <3rd %ile). The pt is stable, completely asymptomatic, w/o edema. The 24hr urine with 242 mg of protein. Her BP is labile and Labetalol was adjusted today to TID dosing now. The NST is reactive. The steroids course was completed today. Cardiology consult appreciated. Continue/ adjust BP meds. Plan to obtain MFM consult re: delivery timing. I discussed the clinical data and possible delivery with pt. She feels well and hesitant to agree to delivery. The pt agreed to MFM input.
[2019-04-02] MEDS ORDERED: LABETALOL HCL 200 MG TABLET (FP) ONE ×2 (05:51→11:50)
[2019-04-02] MEDS: LABETALOL HCL 200 MG TABLET (FP) PO SCH ×3 (06:00→21:42)
[2019-04-02] MEDS: ALDOMET PO SCH ×3 (06:00→21:43)
[2019-04-02 06:42] LABS: BASO % 0.1 % (0-2.0); HEMATOCRIT 37.6 % (32.4-45.2); HEMOGLOBIN 12.8 GM/dL (10.7-15.3); LYMPH % 8.8 % (8-40); MCH 30.7 pg (25.7-33.7); MCHC 34.1 g/dl (32.0-36.0); MONO % 3.7 % (3.8-10.2); NEUT % 87.4 % (42.8-82.8); RBC 4.18 M/mm3 (3.60-5.2); WHITE BLOOD COUNT 13.6 K/mm3 (4.0-10.0)
[2019-04-02 07:01] LABS: INR 0.87 (0.83-1.09); PROTHROMBIN TIME (PATIENT) 10.3 SEC (9.7-13.0)
[2019-04-02 07:03] LABS: ACTIVATED PTT 24.6 SECONDS (25.2-36.5)
[2019-04-02 07:11] LABS: ALBUMIN 3.1 g/dl (3.4-5.0); BILIRUBIN,TOTAL 0.5 mg/dL (0.2-1); CALCIUM 8.5 mg/dL (8.5-10.1); CREATININE 0.5 mg/dL (0.55-1.3); POTASSIUM 3.7 mmol/L (3.5-5.1); TOT PROT 6.7 g/dl (6.4-8.2); URIC ACID 2.9 mg/dL (2.6-7.2)
[2019-04-02 07:48] LABS: PLATELET COUNT 139 K/MM3 (134-434)
--- NOTE | 2019-04-02 10:40 | PN ---
Progress Note, Physician History of Present Illness: BP control improved, remains asymptomatic. - Current Medication List Current Medications: Active Medications Labetalol HCl (Normodyne -) 400 mg PO TID [facility] Last Admin: 04/02/19 06:00 Dose: 400 mg Aldomet (Methyldopa) 250mg Tablets Non- Formulary Med 1 each PO TID [facility] Last Admin: 04/02/19 06:00 Dose: 1 each Multivit/Folic Acid/Iron ( Vitamins (Sjr) -) 1 tab PO DAILY [facility] Last Admin: 04/01/19 09:51 Dose: 1 tab - Objective Vital Signs: Vital Signs Temperature 97.8 F 04/02/19 07:45 Pulse Rate 68 04/02/19 09:15 Respiratory Rate 20 04/02/19 09:15 Blood Pressure 148/83 04/02/19 09:15 O2 Sat by Pulse Oximetry (%) Constitutional: Yes: No Distress, Calm, Thin Neck: Yes: Supple Cardiovascular: Yes: Regular Rate and Rhythm Respiratory: Yes: Regular, CTA Bilaterally Gastrointestinal: Yes: Normal Bowel Sounds, Soft Edema: No Labs: CBC, BMP 04/02/19 06:30 04/02/19 06:30 INR, PTT INR 0.87 (0.83-1.09) 04/02/19 06:30 Fibrinogen 397.0 mg/dL (238-498) 03/31/19 12:50 Problem List - Problems (1) Labile hypertension Code(s): R09.89 - OTH SYMPTOMS AND SIGNS INVOLVING THE CIRC AND RESP SYSTEMS (2) Code(s): Z34.90 - ENCNTR FOR SUPRVSN OF NORMAL , UNSP, UNSP TRIMESTER Qualifiers: Weeks of gestation: 32 weeks Qualified Code(s): Z3A.32 - 32 weeks gestation of Assessment/Plan 1. Labile hypertension 2. 32 IUP P:1. Increased labetolol 400 tid and aldomet 250 tid, may uptitrate labetolol as hemodynamics tolerate. 2. 24 hr urine protein results noted, await MFM regarding timing of delivery 3. May d/c home from CV-standpoint with f/u in office
[2019-04-02] MEDS: PRENATAL VITAMINS W/ FOLIC ACID TABLET (FP) PO SCH (10:47)
[2019-04-03] MEDS: LABETALOL HCL 200 MG TABLET (FP) PO SCH ×3 (05:46→22:10)
[2019-04-03] MEDS: ALDOMET PO SCH ×3 (05:47→22:10)
[2019-04-03] MEDS: PRENATAL VITAMINS W/ FOLIC ACID TABLET (FP) PO SCH (10:03)
--- NOTE | 2019-04-03 19:59 | PN ---
Progress Note (short form) - Note Progress Note: 32 weeks, CHT no c/o ,no head ache , no blurred vision, no RUQ pain, no contraction CBC, BMP 04/02/19 06:30 04/02/19 06:30 abdomen soft, no RUQ pain, uterus non tender , 32 weeks NST reactive, no contraction ext. trace edema, DTR normal plan cont anti htn meds monitor BP, FHR repeat cbc, cmp, 24 hr urine in am
[2019-04-04] MEDS: LABETALOL HCL 200 MG TABLET (FP) PO SCH ×3 (05:57→21:50)
[2019-04-04] MEDS: ALDOMET PO SCH ×3 (05:58→21:50)
[2019-04-04] MEDS: PRENATAL VITAMINS W/ FOLIC ACID TABLET (FP) PO SCH (09:37)
--- NOTE | 2019-04-04 18:56 | PN ---
Progress Note, Physician Chief Complaint: Pt A&Ox3; sitting in chair; asymptomatic. History of Present Illness: The pt was seen for the first time at A ~10wk of and noted to have in-office BP 172/91. She was initially started on Procardia but did not tolerate meds due to headache. She was subsequently seen by Cardiology (Dr. Broussard ) and BP was better controlled with Aldomet and Labetalol. The pt's BP's during care were mostly 140-150's/80-90's range. The pt was seen in the Ob office with BP 172/89, 180/100, 180/100 prompting consideration of hospital admission.. She is taking her medications as scheduled. She is asymptomatic for s/sx's of preeclampsia. The pt denies headache, scotoma, blurry vision, abdominal pain. She states good movement. The pt was also seen by MFM today for f/u of growth and noted to have suspected IUGR w/probably uteroplacental insufficiency. The MFM evaluation took place before the BP was taken. The S/D was elevated but w/o absent and/or reverse end-diastolic flow. The recommendation was to continue antepartum surveillance with NST twice/wk, BPP weekly; f/u growth and Dopplers in 2- 3 weeks. Once the elevated BP was noted the pt was referred to L&D for evaluation to r/o superimposed preeclampsia. History Source: Patient, Medical Record - Current Medication List Current Medications: Active Medications Labetalol HCl (Normodyne -) 400 mg PO TID [facility] Last Admin: 04/04/19 14:00 Dose: 400 mg Aldomet (Methyldopa) 250mg Tablets Non- Formulary Med 1 each PO TID [facility] Last Admin: 04/04/19 14:00 Dose: 1 each Multivit/Folic Acid/Iron ( Vitamins (Sjr) -) 1 tab PO DAILY [facility] Last Admin: 04/04/19 09:37 Dose: 1 tab - Objective Vital Signs: Vital Signs Temperature 98.4 F 04/04/19 18:15 Pulse Rate 75 04/04/19 18:15 Respiratory Rate 20 04/04/19 18:15 Blood Pressure 174/82 H 04/04/19 18:15 O2 Sat by Pulse Oximetry (%) Constitutional: Yes: Well Nourished, Calm Eyes: Yes: WNL HENT: Yes: WNL Neck: Yes: WNL Cardiovascular: Yes: Murmur, S1, S2, S4 Respiratory: Yes: WNL Gastrointestinal: Yes: WNL ...Rectal Exam: Yes: Deferred Genitourinary: No: Anuria Musculoskeletal: Yes: WNL, Muscle Weakness Edema: No Peripheral Pulses WNL: Yes Integumentary: Yes: WNL Neurological: Yes: WNL ...Motor Strength: WNL Psychiatric: Yes: WNL Labs: CBC, BMP 04/02/19 06:30 04/02/19 06:30 INR, PTT INR 0.87 (0.83-1.09) 04/02/19 06:30 Fibrinogen 397.0 mg/dL (238-498) 03/31/19 12:50 - ....Imaging Ultrasound: Image Reviewed (ECHO 10/2018) Problem List - Problems (1) Labile hypertension Assessment/Plan: Recommend increasing gradually either Methyldopa or Labetolol as needed and as hemodynamically tolerated, for BP control, following BP serially throughout the night. Pt's BP has been elevated throughout the day, with the exception of early am for the past two days, when it was transiently as low as 115 systolic and 50 diastolic mmHg. Pt reportedly refuses IV antihypertensives, which would allow finer titration. Code(s): R09.89 - OTH SYMPTOMS AND SIGNS INVOLVING THE CIRC AND RESP SYSTEMS (2) Assessment/Plan: workup in progress, and noted. Code(s): Z34.90 - ENCNTR FOR SUPRVSN OF NORMAL , UNSP, UNSP TRIMESTER Qualifiers: Weeks of gestation: 32 weeks Qualified Code(s): Z3A.32 - 32 weeks gestation of
[2019-04-05] MEDS: ALDOMET PO SCH ×3 (06:13→22:20)
[2019-04-05] MEDS: LABETALOL HCL 200 MG TABLET (FP) PO SCH ×3 (06:13→22:19)
[2019-04-05 08:01] LABS: BASO % 0.5 % (0-2.0); EOS % 1.8 % (0-4.5); HEMATOCRIT 39.1 % (32.4-45.2); HEMOGLOBIN 13.5 GM/dL (10.7-15.3); MCH 31.1 pg (25.7-33.7); MCHC 34.6 g/dl (32.0-36.0); MEAN CELL VOLUME 89.9 fl (80-96); MEAN PLT VOLUME 10.4 fl (7.5-11.1); MONO % 6.6 % (3.8-10.2); NEUT % 70.1 % (42.8-82.8); RBC 4.34 M/mm3 (3.60-5.2); RDW 13.1 % (11.6-15.6); WHITE BLOOD COUNT 10.9 K/mm3 (4.0-10.0)
[2019-04-05 08:13] LABS: BILIRUBIN,TOTAL 0.5 mg/dL (0.2-1); BLOOD UREA NITROGEN 7.8 mg/dL (7-18); CALCIUM 8.3 mg/dL (8.5-10.1); CREATININE 0.5 mg/dL (0.55-1.3); POTASSIUM 3.5 mmol/L (3.5-5.1); TOT PROT 6.6 g/dl (6.4-8.2); URIC ACID 3.4 mg/dL (2.6-7.2)
--- NOTE | 2019-04-05 09:00 | PN ---
Progress Note (short form) - Note Progress Note: 04/04/19 10 am no c/o ,no headache or blurred vision , no RUQ pain, no swelling BP labile, this morning 154/86. 117/50. pulse 77 abdomen soft, non tender , no RUQ tenderness uterus non tender ext. trace edema normal reflexes NST reactive for 32 week , no ontraction impression CHT, with labile BP , no evidence of PIH superimposed plan will collect 24 hr urine today cbc, cmp in am revaluation by MFM for possible induction
--- NOTE | 2019-04-05 09:01 | PN ---
Progress Note (short form) - Note Progress Note: 32 weeks, CHT, no c/o , good fm CBC, BMP 04/05/19 07:35 Last Vital Signs Temp Pulse Resp BP Pulse Ox 97.7 F 71 18 144/85 04/05/19 06:00 04/05/19 06:00 04/05/19 06:00 04/05/19 06:00 CBC, BMP 04/05/19 07:35 04/05/19 07:35 Laboratory Results - last 24 hr 04/05/19 06:30 Urine Protein 14 H Ur Total Protein 24 Hr 276 H abdomen soft. non tender, , no cva uterus non tender no calf tenderness impression CHT ,on antiHTN meds , labile BP, advised revaluation by MFM and recommendation for delivery time. cont BP monitoring
[2019-04-05 09:10] LABS: PLATELET COUNT 140 K/MM3 (134-434)
[2019-04-05] MEDS: PRENATAL VITAMINS W/ FOLIC ACID TABLET (FP) PO SCH (10:11)
[2019-04-05 10:12] LABS: URINE TOTAL VOLUME 1975 mL
--- NOTE | 2019-04-05 10:34 | PN ---
Progress Note, Physician History of Present Illness: BP control improved, remains asymptomatic. - Current Medication List Current Medications: Active Medications Labetalol HCl (Normodyne -) 400 mg PO TID [facility] Last Admin: 04/05/19 06:13 Dose: 400 mg Aldomet (Methyldopa) 250mg Tablets Non- Formulary Med 1 each PO TID [facility] Last Admin: 04/05/19 06:13 Dose: 1 each Multivit/Folic Acid/Iron ( Vitamins (Sjr) -) 1 tab PO DAILY [facility] Last Admin: 04/05/19 10:11 Dose: 1 tab - Objective Vital Signs: Vital Signs Temperature 97.7 F 04/05/19 06:00 Pulse Rate 71 04/05/19 06:00 Respiratory Rate 18 04/05/19 06:00 Blood Pressure 144/85 04/05/19 06:00 O2 Sat by Pulse Oximetry (%) Constitutional: Yes: No Distress, Calm, Thin Neck: Yes: Supple Cardiovascular: Yes: Regular Rate and Rhythm Respiratory: Yes: Regular, CTA Bilaterally Gastrointestinal: Yes: Normal Bowel Sounds, Soft Edema: No Labs: CBC, BMP 04/05/19 07:35 04/05/19 07:35 INR, PTT INR 0.87 (0.83-1.09) 04/02/19 06:30 Fibrinogen 397.0 mg/dL (238-498) 03/31/19 12:50 Problem List - Problems (1) Labile hypertension Code(s): R09.89 - OTH SYMPTOMS AND SIGNS INVOLVING THE CIRC AND RESP SYSTEMS (2) Code(s): Z34.90 - ENCNTR FOR SUPRVSN OF NORMAL , UNSP, UNSP TRIMESTER Qualifiers: Weeks of gestation: 32 weeks Qualified Code(s): Z3A.32 - 32 weeks gestation of Assessment/Plan 1. Labile hypertension 2. 32 IUP 3. Suspected IUGR w/probable uteroplacental insufficiency P:1. Increased labetolol 400 tid and aldomet 250 tid, may uptitrate labetolol as hemodynamics tolerate. 2. 24 hr urine protein results noted, await MFM regarding timing of delivery 3. MFM recommendations was to continue antepartum surveillance with NST twice/wk , BPP weekly; f/u growth and Dopplers in 2-3 weeks vs possible induction
[2019-04-05 11:05] LABS: URINE PROTEIN 14 mg/dl (5.0-11.9)
[2019-04-06] MEDS ORDERED: LABETALOL HCL 5 MG/1 ML (100MG/20 ML VIAL) IVPUSH ONE (02:00)
[2019-04-06] MEDS ORDERED: hydrALAZINE HCL 20 MG/ML VIAL IVPUSH ONE (04:03)
[2019-04-06] MEDS: LABETALOL HCL 200 MG TABLET (FP) PO SCH ×3 (06:43→22:13)
[2019-04-06] MEDS: ALDOMET PO SCH ×3 (06:43→22:14)
[2019-04-06] MEDS: PRENATAL VITAMINS W/ FOLIC ACID TABLET (FP) PO SCH (10:04)
--- NOTE | 2019-04-06 11:55 | PN ---
Progress Note, Physician Chief Complaint: 29yo P1 @ 33 wks with Chronic HTN, sever range BPs, IUGR She has no MCCARTNEY, no RUQ pain, no edema, no VB, no LOF, + FM, no contructions History of Present Illness: Admited 03/31/19 with sever range BPs assymptomatic, labs wnl s/p Celestone 03/31-04/01- Currently on PO MethylDopa and Labetalol with poor control overnight 20mg Labetalol IVP without improvement Patient responded to 5mg Hydralzine IVP with lowering of BP - Current Medication List Current Medications: Active Medications Labetalol HCl (Normodyne -) 400 mg PO TID [facility] Last Admin: 04/06/19 06:43 Dose: 400 mg Aldomet (Methyldopa) 250mg Tablets Non- Formulary Med 1 each PO TID [facility] Last Admin: 04/06/19 06:43 Dose: 1 each Multivit/Folic Acid/Iron ( Vitamins (Sjr) -) 1 tab PO DAILY [facility] Last Admin: 04/06/19 10:04 Dose: 1 tab - Objective Vital Signs: Vital Signs Temperature 97.8 F 04/06/19 06:00 Pulse Rate 71 04/06/19 06:00 Respiratory Rate 18 04/06/19 06:00 Blood Pressure 162/93 04/06/19 06:00 O2 Sat by Pulse Oximetry (%) Constitutional: Yes: Well Nourished, No Distress, Calm Eyes: Yes: WNL, Conjunctiva Clear HENT: Yes: WNL, Atraumatic, Normocephalic Neck: Yes: WNL, Supple Cardiovascular: Yes: WNL, Regular Rate and Rhythm Respiratory: Yes: WNL, Regular, CTA Bilaterally Gastrointestinal: Yes: WNL, Normal Bowel Sounds, Soft Genitourinary: Yes: WNL Breast(s): Yes: WNL Musculoskeletal: Yes: WNL Extremities: Yes: WNL Edema: No Peripheral Pulses WNL: Yes Integumentary: Yes: WNL Neurological: Yes: WNL, Alert, Oriented ...Motor Strength: WNL Psychiatric: Yes: WNL, Alert, Oriented Labs: CBC, BMP 04/05/19 07:35 04/05/19 07:35 INR, PTT INR 0.87 (0.83-1.09) 04/02/19 06:30 Fibrinogen 397.0 mg/dL (238-498) 03/31/19 12:50 Assessment/Plan 29yo P1 @ 33wks with Chronic HTN, labile BPs in sever range no signs of PEC, asymptomatic IUGR with reassuring testing BPP 05/27 today and yesterday Case discussed with Dr. Broussard and Dr. Knott Plan: 1. Attempt to control BP with 3 agents - Labetalol, MethilDopa, and Hydralzine 10mg BID added 2. Continue monitoring labs and Status 3. Official MFM consult will be done on 04/08/19 to decide on the delivery plan 4. Plan discussed with family in detail, they showed understanding.
--- NOTE | 2019-04-06 12:28 | PN ---
Progress Note, Physician Chief Complaint: Events noted Not in distress History of Present Illness: Patient was seen and examined. Awake and alert. Chart was reviewed Denies chest pain, SOB or palpitations BP still elevated at 170 mmHg systolic Was given Hydralazine IV yesterday with lowering of BP - Current Medication List Current Medications: Active Medications Labetalol HCl (Normodyne -) 400 mg PO TID [facility] Last Admin: 04/06/19 06:43 Dose: 400 mg Aldomet (Methyldopa) 250mg Tablets Non- Formulary Med 1 each PO TID [facility] Last Admin: 04/06/19 06:43 Dose: 1 each Multivit/Folic Acid/Iron ( Vitamins (Sjr) -) 1 tab PO DAILY [facility] Last Admin: 04/06/19 10:04 Dose: 1 tab - Objective Vital Signs: Vital Signs Temperature 98.4 F 04/06/19 08:00 Pulse Rate 84 04/06/19 08:00 Respiratory Rate 20 04/06/19 08:00 Blood Pressure 118/65 04/06/19 08:00 O2 Sat by Pulse Oximetry (%) Eyes: Yes: PERRL HENT: Yes: Atraumatic Neck: Yes: Supple Cardiovascular: Yes: Regular Rate and Rhythm, S1, S2 Respiratory: Yes: CTA Bilaterally Gastrointestinal: Yes: Normal Bowel Sounds, Soft, Other () Edema: No Labs: CBC, BMP 04/05/19 07:35 04/05/19 07:35 INR, PTT INR 0.87 (0.83-1.09) 04/02/19 06:30 Fibrinogen 397.0 mg/dL (238-498) 03/31/19 12:50 Problem List - Problems (1) Labile hypertension Code(s): R09.89 - OTH SYMPTOMS AND SIGNS INVOLVING THE CIRC AND RESP SYSTEMS (2) Code(s): Z34.90 - ENCNTR FOR SUPRVSN OF NORMAL , UNSP, UNSP TRIMESTER Qualifiers: Weeks of gestation: 32 weeks Qualified Code(s): Z3A.32 - 32 weeks gestation of Assessment/Plan 1. Labile hypertension 2. 32 week 3. Suspected IUGR w/probable uteroplacental insufficiency PLAN: 1. Continue Labetolol 400 mg TID and Methyldopa 250 mg TID (taking her own). Discussed case with Dr. Kellogg about use of Hydralazine which appears to be helping. Since it will be used short term until delivery about 2 weeks from now , it can be used safely. 2. Continue monitoring and further care as per OB Discussed case with Dr. Quiles (CUSTOMER ENGINEERING SPECIALIST) Matthew Broussard MD
[2019-04-06] MEDS ORDERED: LABETALOL HCL 100 MG TABLET (FP) ONE (14:04)
[2019-04-06] MEDS: hydrALAZINE HCL 10 MG TABLET PO SCH (22:13)
[2019-04-07] MEDS: LABETALOL HCL 200 MG TABLET (FP) PO SCH ×3 (06:11→22:00)
[2019-04-07] MEDS: ALDOMET PO SCH ×3 (06:11→22:00)
[2019-04-07 07:11] LABS: INR 0.88 (0.83-1.09); PROTHROMBIN TIME (PATIENT) 10.4 SEC (9.7-13.0)
[2019-04-07 07:20] LABS: BASO % 0.4 % (0-2.0); EOS % 1.7 % (0-4.5); HEMATOCRIT 36.6 % (32.4-45.2); HEMOGLOBIN 12.8 GM/dL (10.7-15.3); LYMPH % 20.9 % (8-40); MCH 31.1 pg (25.7-33.7); MCHC 35.1 g/dl (32.0-36.0); MEAN CELL VOLUME 88.7 fl (80-96); MEAN PLT VOLUME 10.7 fl (7.5-11.1); MONO % 6.6 % (3.8-10.2); NEUT % 70.4 % (42.8-82.8); PLATELET COUNT 133 K/MM3 (134-434); RBC 4.13 M/mm3 (3.60-5.2)
[2019-04-07 07:31] LABS: ALBUMIN 2.9 g/dl (3.4-5.0); BILIRUBIN,DIRECT 0.1 mg/dL (0.0-0.2); BILIRUBIN,TOTAL 0.5 mg/dL (0.2-1); BLOOD UREA NITROGEN 8.8 mg/dL (7-18); CALCIUM 8.6 mg/dL (8.5-10.1); CREATININE 0.5 mg/dL (0.55-1.3); POTASSIUM 3.6 mmol/L (3.5-5.1); TOT PROT 6.2 g/dl (6.4-8.2); URIC ACID 3.2 mg/dL (2.6-7.2)
--- NOTE | 2019-04-07 07:40 | PN ---
Progress Note (SOAP) - Subjective Chief Complaint: Pt w/o complaints. She is asymptomatic for s/sx's of preeclampsia. The pt denies headache, blurry vision, abdominal pain. She reports good FM. BP is still labile but looks like improving History of Present Illness: Hydralazine was added yesterday - Current Medications Current Medications: Active Medications Hydralazine HCl (Apresoline -) 10 mg PO BID [facility] Last Admin: 04/06/19 22:13 Dose: 10 mg Labetalol HCl (Normodyne -) 400 mg PO TID [facility] Last Admin: 04/07/19 06:11 Dose: 400 mg Aldomet (Methyldopa) 250mg Tablets Non- Formulary Med 1 each PO TID [facility] Last Admin: 04/07/19 06:11 Dose: 1 each Multivit/Folic Acid/Iron ( Vitamins (Sjr) -) 1 tab PO DAILY [facility] Last Admin: 04/06/19 10:04 Dose: 1 tab - Objective Vital Signs: Vital Signs Temperature 98 F 04/07/19 06:00 Pulse Rate 67 04/07/19 06:00 Respiratory Rate 18 04/07/19 06:00 Blood Pressure 175/98 H 04/07/19 06:00 O2 Sat by Pulse Oximetry (%) BP on repeat 133/84 Constitutional: Yes: Well Nourished, No Distress, Calm Eyes: Yes: WNL, Conjunctiva Clear HENT: Yes: WNL, Atraumatic, Normocephalic Neck: Yes: WNL, Supple, Trachea Midline Cardiovascular: Yes: WNL, Regular Rate and Rhythm Respiratory: Yes: WNL, Regular, CTA Bilaterally Gastrointestinal: Yes: WNL, Normal Bowel Sounds, Soft ...Rectal Exam: Yes: Deferred Genitourinary: Yes: WNL Musculoskeletal: Yes: WNL Extremities: Yes: WNL Peripheral Pulses WNL: Yes Edema: No Integumentary: Yes: WNL Neurological: Yes: WNL, Alert, Oriented ...Motor Strength: Yes: WNL Psychiatric: Yes: WNL Additional Findings/Remarks: Uterus: gravid, NT NST (last night) with moderate variability and accels, occasional mild variable , no Ctx. Labs Lab Results: CBC, BMP 04/07/19 06:20 Assessment/Plan 29yo P1 with at EGA 33w and chronic HTN on meds, possible superimposed PEC, also with suspected IUGR ( growth ~3rd %ile). The pt is stable, completely asymptomatic, w/o edema. Her BP is labile and Hydralazine was added yesterday. The NST is reactive. The steroids course was completed. Cardiology f/u is appreciated. Continue/ adjust BP meds.
[2019-04-07] MEDS: PRENATAL VITAMINS W/ FOLIC ACID TABLET (FP) PO SCH (09:05)
[2019-04-07] MEDS: hydrALAZINE HCL 10 MG TABLET PO SCH ×2 (09:05→22:00)
--- NOTE | 2019-04-07 14:40 | PN ---
Progress Note, Physician History of Present Illness: BP control improved, remains asymptomatic. - Current Medication List Current Medications: Active Medications Hydralazine HCl (Apresoline -) 10 mg PO BID [facility] Last Admin: 04/07/19 09:05 Dose: 10 mg Labetalol HCl (Normodyne -) 400 mg PO TID [facility] Last Admin: 04/07/19 14:02 Dose: 400 mg Aldomet (Methyldopa) 250mg Tablets Non- Formulary Med 1 each PO TID [facility] Last Admin: 04/07/19 14:04 Dose: 1 each Multivit/Folic Acid/Iron ( Vitamins (Sjr) -) 1 tab PO DAILY [facility] Last Admin: 04/07/19 09:05 Dose: 1 tab - Objective Vital Signs: Vital Signs Temperature 97.7 F 04/07/19 08:29 Pulse Rate 74 04/07/19 08:29 Respiratory Rate 20 04/07/19 08:29 Blood Pressure 133/84 04/07/19 08:29 O2 Sat by Pulse Oximetry (%) Constitutional: Yes: No Distress, Calm, Thin Neck: Yes: Supple Cardiovascular: Yes: Regular Rate and Rhythm Respiratory: Yes: Regular, CTA Bilaterally Gastrointestinal: Yes: Normal Bowel Sounds, Soft Edema: No Labs: CBC, BMP 04/07/19 06:20 04/07/19 06:20 INR, PTT INR 0.88 (0.83-1.09) 04/07/19 06:20 Fibrinogen 365.0 mg/dL (238-498) 04/07/19 06:20 Problem List - Problems (1) Labile hypertension Code(s): R09.89 - OTH SYMPTOMS AND SIGNS INVOLVING THE CIRC AND RESP SYSTEMS (2) Code(s): Z34.90 - ENCNTR FOR SUPRVSN OF NORMAL , UNSP, UNSP TRIMESTER Qualifiers: Weeks of gestation: 32 weeks Qualified Code(s): Z3A.32 - 32 weeks gestation of Assessment/Plan 1. Labile hypertension 2. 32 week 3. Suspected IUGR w/probable uteroplacental insufficiency PLAN: 1. Continue Labetolol 400 mg TID and Methyldopa 250 mg TID (taking her own). Started in hydralazine 10 bid with uptitration as tolerated, safety confirmed with ob service 2. Continue monitoring and further care as per OB
[2019-04-07] MEDS ORDERED: hydrALAZINE HCL 20 MG/ML VIAL ONE ×2 (17:56→17:58)
[2019-04-07] MEDS ORDERED: ELECTROLYTE-148 SOLN 1,000 ML IV ONE (18:00)
[2019-04-07] MEDS ORDERED: hydrALAZINE HCL 20 MG/ML VIAL IVPUSH ONE ×2 (18:30)
[2019-04-07 19:17] VITALS: TEMP 98.4
[2019-04-07] MEDS ORDERED: MAGNESIUM 4GM/H20 - 4 GM/100 ML IVPB IVPB SCH (19:30)
--- NOTE | 2019-04-07 19:37 | PN ---
Ante-Partal Exam - Subjective Subjective: I was called by the nurse that the pt's BP is 204/108, repeat was 205/100, and confirmed manually at 198/110. The is w/o complaints and asymptomatic. The t was transferred to L&D for BP management. Vital Signs: Vital Signs Temperature 98.4 F 04/07/19 17:48 Pulse Rate 90 04/07/19 19:02 Respiratory Rate 20 04/07/19 19:02 Blood Pressure 152/96 04/07/19 19:02 O2 Sat by Pulse Oximetry (%) Bleeding: No Headache: No Visual changes: No Right upper quadrant pain: No Pain (scale 1-10): 0 - Contractions Contractions: No - Exam during Labor Heart Rate: 145 Variability: Moderate Heart Rate Location: Midline Category: I Monitor Accelerations: Absent Monitor Decelerations: None Presentation: Vertex - Intrapartum Hemorrhage Risk Medium Risk Factors: None High Risk Factors: None Risk Score: 0 Risk Level: Low Risk - Assessment/Plan Assessment/Plan: 29yo female with cHTN and at EGA 33wks. BP is high and pt was transferred to L&D. She was given Hydralazine 5mg IVP x 2 and the BP declined to 156/79. The fetus with Category I tracing. The pt has no s/sx's of PEC or malignant HTN. She appears to be clinically well and stable. At this point, the decision was made to transfer the pt to [facility] due to difficulty in managing HTN and suspected IUGR. The case was discussed with the [facility] accepting physician (Dr. Villatoro) who accepted the transfer. The pt is agreeable to transfer.
[2019-04-07] MEDS: MAGNESIUM SULFATE 20GM/500ML - 20 GM/500 ML INFUS.BAG IVPB SCH ×2 (20:00→21:10)
[2019-04-07 20:16] VITALS: PULSE 92
[2019-04-07 20:20] VITALS: BP 156/79
[2019-04-07] MEDS ORDERED: ACETAMINOPHEN 325 MG TABLET (FP) ONE (21:09)
== END 2019-04-07 22:00 | disposition short-term general hospital (02) | DRG 833 ==
LOC: JDEL 11:49 → JLDR 16:10 → J3W 04-02 14:50 → JLDR 04-07 19:15
PROVIDERS: ADMIT Obstetrics & Gynecology; ATTEND Obstetrics & Gynecology
DX: O16.3 Unspecified maternal hypertension, third trimester (principal); O36.5930 Maternal care for other known or suspected poor fetal growth, third trimester, not applicable or unspecified; Z3A.32 32 weeks gestation of pregnancy
CPT/HCPCS: 36415; 80053; 80076; 81003; 82575; 84156; 84443; 84550; 85025; 85384; 85610; 85730; 86850; 86900; 86901; 96372